=== PATIENT | female | born 1940 | race Caucasian/White ===

== ENCOUNTER → 2016-03-04 | Outpatient (CLI) | payer BC ==
[~2016-03-04] MED LIST: LEVO75TA PO; MISCCAP80 PO; VTMD1000 PO
[2016-03-04 14:40] LABS: HEMATOCRIT 38.2 % (37-47); MEAN CELL VOLUME 95.3 fL (80-100); MEAN CORPUSCULAR HEMOGLOBIN 31.4 pg (25-34); MEAN PLATELET VOLUME 9.2 fL (7.4-10.4); PLATELET COUNT 113 K/uL (130-400); RED BLOOD COUNT 4.01 M/uL (4.2-5.4); WHITE BLOOD COUNT 3.87 K/uL (4.8-10.8)
[2016-03-04 14:58] LABS: ALT/SGPT 21 U/L (12-78); AST/SGOT 18 U/L (15-37); BLOOD UREA NITROGEN 17 mg/dl (7-18); BUN/CREATININE RATIO 22.1 (10-20); CALCIUM 9.1 mg/dl (8.5-10.1); CARBON DIOXIDE 27 mmol/L (21-32); CHLORIDE 108 mmol/L (98-107); CREATININE 0.75 mg/dl (0.60-1.20); GLUCOSE 96 mg/dl (70-99); POTASSIUM 3.8 mmol/L (3.5-5.1); SODIUM 143 mmol/L (136-145)
[2016-03-04 15:10] LABS: ALKALINE PHOSPHATASE 81 U/L (45-117); IMMUNOGLOBULN M 63.2 mg/dL (40-230); RHEUMATOID FACTOR < 10.0 U/mL (0-15)
[2016-03-04 15:13] LABS: BASO ABS # 0.14 K/uL (0-0.2); BASOPHIL % 3.5 %; COMPLETE YES; EOSINOPHIL % 5.2 %; LYMPH ABS # 1.22 K/uL (1.2-3.4); LYMPHOCYTE % 31.4 %; NEUTROPHILS % 27.8 %; VARIANT LYM ABS # 0.74 K/uL; VARIANT LYMPHOCYTE % 19.1 %
[2016-03-04 15:15] LABS: INR 1.2 (0.9-1.1); PROTHROMBIN TIME (PATIENT) 13.4 SECONDS (9.0-12.0)
[2016-03-04 17:13] LABS: FIBRINOGEN* < 35 mg/dl (184-400)
[2016-03-04 17:38] LABS: MIXING STUDY INTERPRET PT PT CORRECTED; PAT:SHPL 37 PT 13.8 SECONDS; PT CALC 37 2.2; SHPL 37 PT 13.5 SECONDS
[2016-03-08 14:09] LABS: FACTOR VIII ACTIV**SEND TO GMC 142 % (55 - 145)
[2016-03-11 13:53] LABS: REFERENCE QUEST TEST REPORT
[2016-03-12 02:20] LABS: ALBUMIN 3.9 G/DL (3.8-4.8); ANTITHROMBINIII ACTIVITY** 117 % activity (80-120); B2 GLYCOPROTEIN IGA <9 SAU (<=20); B2 GLYCOPROTEIN IGG <9 SGU (<=20); B2 GLYCOPROTEIN IGM <9 SMU (<=20); COAG FACTOR 13 ACTIVITY** 174 % activity (57-192); COAG FACTOR 7 ACTIVITY* 346X 102 % (60-150); DRVVT MIX INTERPRETAION Not Indicated; GAMMA GLOBULIN 0.9 G/DL (0.8-1.7); LAC PTT SCREEN 36 sec (<=40); LIPOPROTEIN A TC 34604X 31 nmol/L (<75); LUPUS ANTICOAGULANT** TC36573X Negative (Negative); PHOSPHATIDYLSERINE IGA <20 U/mL (<20); PHOSPHATIDYLSERINE IGG <10 U/mL (<10); PHOSPHATIDYLSERINE IGM <25 U/mL (<25); PROTEIN C ACTIVITY** TC 1777X 132 % (70-180); PROTEIN S ACT(FUNCT)**1779X 92 % (60-140); TOTAL PROTEIN 6.7 G/DL (6.2-8.3)
[2016-03-16 16:38] LABS: DRVVTNEUT(REFLEX!DO NOT ORDER) Negative (Negative)
--- NOTE | 2016-04-09 08:31 | CODING QUERY NO DIAGNOSIS ---
TREATMENT RENDERED WITHOUT A DIAGNOSIS 40 To promote full compliance with coding requirements relating to patient care, physician participation is requested in all cases of home health scheduler uncertainty. Please assist us with providing a diagnosis/symptom for the test(s) below: A diagnosis/symptom was not documented on your Order. A valid diagnosis/symptom is required to bill all insurances. Please remember that we are unable to code a diagnosis of rule out, probable, possible, questionable, or suspected. DOS 03/04/16 Tests that require a diagnosis: * COMP METABOLIC DX: *MANJEET SCREEN DX: * IMMUNOGLOBULIN G,A,M DX: *FACTOR 5 LEIDEN DX: * RHEUMATOID FACTOR DX: *FACTOR 8 DX: * FIBRINOGEN DX: *COAGULATION FACTOR 7 DX: * THROMBIN TIME DX: *FACTOR 2 MUTATION DX: * CBC W/AUTO DIFF DX: *BETA-2 GLYCOPROTEIN DX: * ESR DX: *ANTITHROMBIN III DX: *COAG FACTOR 13 DX: *LUPUS ANTICOAGULANT DX: Provider Signature: Date: Thank you [facility] Information Management Once completed, please kindly fax back to [phone] For questions please call [phone]
--- NOTE | 2016-06-04 10:53 | CODING QUERY MEDICAL NECESSITY ---
SUPPORTING DIAGNOSIS NEEDED A supporting diagnosis is required for the test/procedure performed on this patient in order for us to be reimbursed by the patient's insurance. Please provide a supporting diagnosis for the following test/procedure listed below next to the test name along with your signature. *If there is no additional diagnosis for this patient that would support the following test/procedure please document that below next to the test/procedure. Test(s)/Procedure(s) that require a supporting diagnosis: * FACTOR II PROTHROMBIN MUTATION DIAGNOSIS: * FACTOR V MUTATION DIAGNOSIS: * DOS: 03/04/16 Provider Signature: Date: Thank you Corn[facility] Information Management Once completed, please kindly fax back to [phone] For questions please call [phone]
== END ==
LOC: C.LABFOXMH 12:28
PROVIDERS: ATTEND Internal Medicine Hematology & Oncology
DX: D65 Disseminated intravascular coagulation [defibrination syndrome] (principal); I82.421 Acute embolism and thrombosis of right iliac vein; Q79.6 Ehlers-Danlos syndromes; E66.9 Obesity, unspecified; D68.59 Other primary thrombophilia

== ENCOUNTER → 2016-04-19 | Outpatient (CLI) | payer BC ==
[2016-04-19 10:44] LABS: THYROID STIMULATING HORMONE 1.5 uIu/ml (0.300-4.500)
== END ==
LOC: C.LABFOXMH 09:22
PROVIDERS: ATTEND Internal Medicine
DX: E03.9 Hypothyroidism, unspecified (principal)

== ENCOUNTER → 2016-06-07 | Outpatient (CLI) | payer BC ==
[~2016-06-07] MED LIST changes: +OPTIRAY 320 IV PRN
--- NOTE | 2016-06-07 11:37 | DIAGNOSTIC IMAGING REPORT ---
CT OF THE CHEST WITH IV CONTRAST CLINICAL HISTORY: Pulmonary nodules. Coagulopathy. COMPARISON STUDY: 11/27/2015 TECHNIQUE: Following the IV administration of 80 mL of Optiray-320, CT of the thorax was performed from the thoracic inlet to the lung bases. Images are reviewed in the axial, sagittal, and coronal planes. IV contrast was administered without complication. CT DOSE: 263.00 mGy.cm FINDINGS: Thyroid: There is a stable 13 mm left lobe nodule. Thoracic aorta: The thoracic aorta is normal in course and caliber, noting standard 3-vessel arch anatomy. No aneurysm or dissection is seen. Pulmonary vasculature: The pulmonary trunk is normal in caliber. There are no central filling defects identified to suggest pulmonary embolus. Note that this examination was not protocoled for the evaluation of pulmonary emboli. HEART: The heart is normal in size and configuration, without pericardial effusion. Lungs and pleural spaces: No pleural effusions are visualized. There is a stable solid 5 mm right middle lobe pulmonary nodule. There is a stable solid 4 mm left lower lobe pulmonary nodule. Mediastinum: There is no mediastinal lymphadenopathy. Mona: Clear. Axilla: Clear. Upper abdomen: There is hepatic steatosis. Skeletal structures: There are no lytic or blastic osseous lesions. IMPRESSION: 1. 10 month stability of a solid 5 mm right middle lobe pulmonary nodule and solid 4 mm left lower lobe pulmonary nodule. 2. No evidence of pathologic adenopathy 3. Stable 13 mm left lobe thyroid nodule. Please refer to below summary of Fleischner criteria recommendations for follow-up of incidental CT nodules (Joya Doll, Guidelines for management of small pulmonary nodules detected on CT scans: A statement from the Fleischner Society, Radiology 237: 558-106 2005.) SOLID NODULES Solitary nodule size: <6 mm * low risk patients: no follow-up needed * high risk patients: optional CT at 12 months Solitary nodule size: 6-8 mm * low risk patients: follow-up at 6-12 months, then consider further follow-up at 18-24 months * high risk patients: initial follow-up CT at 6-12 months and then at 18-24 months if no change Solitary nodule size: >8 mm * either low or high risk patients - consider follow-up CT at 3 months, and/or CT-PET, and/or biopsy Multiple nodules size: <6 mm * low risk patients: no routine follow-up * high risk patients: optional CT at 12 months Multiple nodules size: 6-8 mm * low risk patients: follow-up at 3-6 months, then consider further follow-up at 18-24 months * high risk patients: follow-up at 3-6 months, then at 18-24 months if no change Multiple nodules size: >8 mm * low risk patients: follow-up at 3-6 months, then consider further follow-up at 18-24 months * high risk patients: follow-up at 3-6 months, then at 18-24 months if no change Note: newly detected indeterminate nodule in persons 35 years of age or older. * low risk patients: minimal or absent history of smoking and/or other known risk factors * high risk patients: history of smoking or of other known risk factors (e.g. first degree relative with lung cancer, or exposure to asbestos, radon, uranium) * if a nodule up to 8 mm is partly solid or is ground glass further follow-up is required after 24 months to exclude possible slow growing adenocarcinoma (MARGARITA) SUBSOLID NODULES Solitary pure ground-glass nodule * nodule size <6 mm - no CT follow-up required * nodule size >=6 mm - follow-up CT at 6-12 months, then every 2 years until 5 years Solitary part-solid nodule * nodule size <6 mm - no CT follow-up required * nodule size >=6 mm - follow-up CT at 3-6 months. If unchanged, and solid component remains <6 mm, then annual follow-up for 5 years Multiple subsolid nodules * nodule size <6 mm - follow-up CT at 3-6 months, consider further follow-up at 2 and 4 years if stable * nodule size >=6 mm - follow-up CT at 3-6 months, subsequent management based on the most suspicious nodule(s) Electronically signed by: Fausto Verduzco M.D. 06/07/2016 11:35 AM Dictated Date/Time: 06/07/2016 11:28 AM
== END | disposition home or self-care (01) ==
LOC: C.CTS 11:00
PROVIDERS: ATTEND Internal Medicine Hematology & Oncology
DX: D68.9 Coagulation defect, unspecified (principal); R91.1 Solitary pulmonary nodule; E04.1 Nontoxic single thyroid nodule

== ENCOUNTER → 2016-06-10 | Outpatient (CLI) | payer BC ==
[~2016-06-10] MED LIST changes: -OPTIRAY 320 IV PRN
--- NOTE | 2016-06-10 09:02 | DIAGNOSTIC IMAGING REPORT ---
ABDOMEN COMPLETE (US) CLINICAL HISTORY: Coagulopathy. COMPARISON STUDY: Abdominal ultrasound February 02, [address] of the abdomen August 14, 2015. FINDINGS: The liver is sonographically normal. There is no biliary ductal dilatation. There are no gallstones. No gallbladder wall thickening is present. The pancreatic body is normal. The head and tail are partially obscured. There is no hydronephrosis. The right kidney measures 9.9 cm and the left measures 10.7 cm. A 3.3 cm cyst arising from the lower pole of the right kidney is noted. Renal echogenicity, size and cortical thickness are normal. The caliber of the abdominal aorta is normal. Visualized portions of the IVC are patent. There is no ascites. IMPRESSION: 1. No significant abnormality within the abdomen. 2. No gallstones or biliary ductal dilatation. 3. 3.3 cm right renal cyst. No hydronephrosis. Electronically signed by: Cuate Thomas M.D. 06/10/2016 9:00 AM Dictated Date/Time: 06/10/2016 8:57 AM
== END | disposition home or self-care (01) ==
LOC: C.ULTR 08:25
PROVIDERS: ATTEND Internal Medicine Hematology & Oncology
DX: D68.9 Coagulation defect, unspecified (principal); N28.1 Cyst of kidney, acquired

== ENCOUNTER → 2016-07-13 | Outpatient (CLI) | payer BC ==
[2016-07-13 10:33] LABS: MEAN CELL VOLUME 98.6 fL (80-100); MEAN CORPUSCULAR HGB CONC 31.4 g/dl (32-36); RED BLOOD COUNT 3.65 M/uL (4.2-5.4)
[2016-07-13 11:10] LABS: PLATELET COUNT 86 K/uL (130-400)
[2016-07-13 11:33] LABS: COMPLETE YES; EOS % 2.5 %; IG% 0.4 %; LYMPH % 76.3 %; LYMPH ABS # 1.83 K/uL (1.2-3.4); MONO % 9.2 %; NEUT % 11.6 %
== END | disposition home or self-care (01) ==
LOC: C.LABFOXMH 09:56
PROVIDERS: ATTEND Internal Medicine Hematology & Oncology
DX: D68.9 Coagulation defect, unspecified (principal)

== ENCOUNTER → 2016-07-23 | Outpatient (CLI) | payer BC ==
--- NOTE | 2016-07-23 08:28 | DIAGNOSTIC IMAGING REPORT ---
ULTRASOUND ABDOMEN COMPLETE CLINICAL HISTORY: Right-sided abdominal pain. COMPARISON STUDY: Abdominal CT dated 08/14/2015. TECHNIQUE: Real-time, grayscale, and color flow sonography of the abdomen was performed. Images are reviewed in the transverse and longitudinal planes. FINDINGS: Liver: The liver is normal in size and echotexture measuring 12.4 cm in length. There is no intrahepatic biliary ductal dilatation. The main portal vein is patent. Gallbladder: The gallbladder is normal in appearance. No gallstones are identified. There is no gallbladder wall thickening or pericholecystic fluid. A sonographic Xiong's sign is reportedly absent. The common bile duct measures up to 0.5 cm in diameter. Pancreas: Visualized portions of the pancreatic head and body are normal in appearance. The splenic vein is patent. Spleen: The spleen is normal in size and echotexture, measuring 10.9 cm in length. Kidneys: The kidneys are images are cortical atrophy. There is no hydronephrosis. The right kidney measures 10.3 cm in length and the left kidney measures 10.7 cm in length. No shadowing calculi are identified. A 3.3 cm cyst is noted in the right lower pole. Abdominal vasculature: Visualized portions of the abdominal aorta are normal in caliber noting atherosclerotic calcification and irregularity. The IVC is normal as imaged. Ascites: None. IMPRESSION: 1. No acute sonographic abnormality is identified. No gallstones are seen. 2. The liver and spleen are normal in size. Electronically signed by: Andrea Catherine M.D. 07/23/2016 8:27 AM Dictated Date/Time: 07/23/2016 8:25 AM
== END | disposition home or self-care (01) ==
LOC: C.ULTR 07:51
PROVIDERS: ATTEND Internal Medicine Hematology & Oncology
DX: D68.9 Coagulation defect, unspecified (principal)

== ENCOUNTER → 2016-08-03 | Outpatient (CLI) | payer BC | END | disposition home or self-care (01) | LOC: C.LABFOXMH 17:04 | PROVIDERS: ATTEND Internal Medicine | DX: R35.0 Frequency of micturition (principal) ==

== ENCOUNTER → 2016-10-26 | Outpatient (CLI) | payer BC ==
[2016-10-26 09:33] LABS: HEMATOCRIT 32.3 % (37-47); MEAN CELL VOLUME 101.6 fL (80-100); MEAN CORPUSCULAR HEMOGLOBIN 31.4 pg (25-34); MEAN PLATELET VOLUME 10.1 fL (7.4-10.4); PLATELET COUNT 54 K/uL (130-400); RED BLOOD COUNT 3.18 M/uL (4.2-5.4); WHITE BLOOD COUNT 2.41 K/uL (4.8-10.8)
[2016-10-26 09:35] LABS: BASO % 0.4 %; BASO ABS # 0.01 K/uL (0-0.2); COMPLETE YES; EOS % 2.1 %; IG% 2.9 %; LYMPH % 68.5 %; LYMPH ABS # 1.65 K/uL (1.2-3.4); NEUT % 21.1 %
[2016-10-26 09:36] LABS: PLT ESTIMATE DECREASED; VACUOLIZATION 1+
--- NOTE | 2016-12-10 11:01 | CODING QUERY NO DIAGNOSIS ---
TREATMENT RENDERED WITHOUT A DIAGNOSIS DATE OF SERVICE: 11/25/16 To promote full compliance with coding requirements relating to patient care, physician participation is requested in all cases of gm uncertainty. Please assist us with providing a diagnosis/symptom for the test(s) below: A diagnosis/symptom was not documented on your Order. A valid diagnosis/symptom is required to bill all insurances. Please remember that we are unable to code a diagnosis of rule out, probable, possible, questionable, or suspected. Tests that require a diagnosis: * CBC W/ AUTO DIFF DIAGNOSIS: Provider Signature: Date: Thank you Tamie Tejada Health Information Management Once completed, please kindly fax back to [phone] For questions please call [phone]
== END | disposition home or self-care (01) ==
LOC: C.LABFOXMH 08:29
PROVIDERS: ATTEND Internal Medicine Hematology & Oncology
DX: Z01.89 Encounter for other specified special examinations (principal)

== ENCOUNTER → 2016-11-05 | Outpatient (CLI) | payer BC ==
--- NOTE | 2016-11-05 15:47 | MAMMOGRAPHY REPORT ---
BILATERAL DIGITAL SCREENING MAMMOGRAM WITH CAD: 11/05/2016 CLINICAL HISTORY: Routine screening. TECHNIQUE: Current study was also evaluated with a Computer Aided Detection (CAD) system. Bilateral CC and MLO and XCCL views were obtained. COMPARISON: Comparison is made to exams dated: 11/05/2015 mammogram, 08/07/2014 mammogram, 08/02/2013 m ammogram, 07/27/2012 mammogram, 07/27/2011 mammogram, and 07/24/2010 mammogram - [facility]. BREAST COMPOSITION: There are scattered areas of fibroglandular density in both breasts. FINDINGS: No suspicious masses, calcifications, or areas of architectural distortion are noted in ei ther breast. There has been no significant interval change compared to prior exams. Scattered bilate ral benign-appearing calcifications are not significantly changed. IMPRESSION: ACR BI-RADS CATEGORY 2: BENIGN There is no mammographic evidence of malignancy. A 1 year screening mammogram is recommended. The pa tient will receive written notification of the results. Approximately 10% of breast cancers are not detected with mammography. A negative mammographic report should not delay biopsy if a clinically suggestive mass is present. Hortensia Vale M.D. ah/:11/05/2016 12:45:41 Wet Cleaner Machine: Tian CRUZ(R)(M), [facility] letter sent: Normal 1/2 BI-RADS Code: ACR BI-RADS Category 2: Benign
== END | disposition home or self-care (01) ==
LOC: C.MAMM 09:19
PROVIDERS: ATTEND Obstetrics & Gynecology
DX: Z12.31 Encounter for screening mammogram for malignant neoplasm of breast (principal)

== ENCOUNTER 2016-11-15 19:37 | Inpatient (IN) | payer BC, OTHER ==
[~2016-11-15] VITALS: Ht 157.5 cm; Wt 81.5 kg
[2016-11-15] MEDS ORDERED: MAGNESIUM SULFATE 1GM / D5W 1 GM BAG IV STA (19:40)
[2016-11-15] MEDS ORDERED: METOCLOPRAMIDE HCL INJ 5 MG/ML 2 ML VIAL IV STA (19:41)
[2016-11-15] MEDS ORDERED: SODIUM CHLORIDE 0.9% 1000ML 1,000 ML IV STA (19:41)
[2016-11-15] MEDS ORDERED: ATROPINE SULFATE 0.1 MG/ML 5ML SYR IV STA (19:49)
--- NOTE | 2016-11-15 19:50 | EMERGENCY ROOM VISIT NOTE ---
History Report prepared by Mazin: Blayne Deleon Under the Supervision of: Dr. Billy Moeller M.D. First contact with patient: 19:38 Stated Complaint: SYNCOPE History of Present Illness The patient is a 76 year old female who presents to the Emergency Room with complaints of 4 syncopal episodes since this afternoon. Today, the patient began chemotherapy injections for her myelodysplastic syndrome. She also has a history of thyroid dysfunction and a dilated aortic root. After the injection, she was doing well and went home. She began to be nauseated so she took a Compazine. She then started to hear a buzzing noise and vomited. She passed out soon after. She hit her head during this episode when she fell. She then had 3 more syncopal episodes with vomiting as well. She states that she has a history of passing out with vomiting, but has never been treated for it. Source of History: patient Onset: this afternoon Position: other (Syncope) Symptom Intensity: 4 episodes Quality: other (Syncope) Timing: intermittent Associated Symptoms: + nausea, + vomiting Note: She hit her head when she fell. She denies any other complaints. Review of Systems See HPI for pertinent positives & negatives. A total of 10 systems reviewed and were otherwise negative. Past Medical & Surgical Medical Problems: (1) Bradycardia with less than 30 beats per minute (2) Obesity, Nos (3) Vitamin Deficiency, Unspecified Family History No pertinent family history Social History Smoking Status: Never Smoker Smokeless Tobacco Use: No Drug Use: none Marital Status: Housing Status: lives with family Occupation Status: retired Current/Historical Medications Scheduled Cholecalciferol (Vitamin D3), 1,000 INTER.UNIT PO DAILY Levothyroxine Sodium (Synthroid), 75 MCG PO DAILY Probiotic Product (Probiotic), 1 CAP PO DAILY Allergies Coded Allergies: Shellfish (Verified Allergy, Unknown, ., 11/15/16) Sodium Hyaluronate (Verified Allergy, Unknown, ., 11/15/16) Physical Exam Vital Signs Date Time Temp Pulse Resp B/P (MAP) Pulse Ox O2 Delivery O2 Flow Rate FiO2 11/15/16 21:15 87 23 113/54 100 Nasal Cannula 2.0 11/15/16 21:01 83 12 114/67 100 Nasal Cannula 2.0 11/15/16 20:46 84 17 130/72 100 Nasal Cannula 2.0 11/15/16 20:30 82 18 124/80 100 Nasal Cannula 2.0 11/15/16 20:25 99 Nasal Cannula 2.0 11/15/16 20:24 88 Room Air 11/15/16 20:16 89 15 131/56 100 Room Air 11/15/16 19:49 52 11/15/16 19:48 0 11/15/16 19:46 100 Room Air 11/15/16 19:45 79 13 133/73 100 Room Air 11/15/16 19:44 71 Physical Exam GENERAL: Patient is a female who is pale in appearance and actively vomiting. HEAD: Normocephalic atraumatic EYES: Ocular movements intact pupils equal and react to light OROPHARYNX mucous membranes are moist no exudates present no erythema or edema present NECK: Supple no nuchal rigidity CHEST: Good equal expansion LUNGS: Clear and equal to auscultation CARDIAC: Normal S1 and S2 ABDOMEN: Soft nontender no guarding BACK: No CVA tenderness EXTREMITIES: No pain upon palpation normal muscle strength in all groups no clubbing cyanosis or edema NEURO: Patient is following commands and answering questions appropriately. Alert and oriented x3 Cranial Nerves 2-12 grossly intact Medical Decision & Procedures ER Provider Diagnostic Interpretation: Radiology results as stated below per my review and radiologist interpretation: CHEST ONE VIEW PORTABLE CLINICAL HISTORY: Chest pain. COMPARISON STUDY: Chest CT June 07, 2016. FINDINGS: Lung volumes are normal. No pneumothorax or pleural effusion is present. There is no evidence of pulmonary edema. There is no consolidation to suggest pneumonia. Cardiomediastinal silhouette is stable. IMPRESSION: No acute cardiopulmonary findings. Electronically signed by: Cuate Thomas M.D. 11/15/2016 8:19 PM Dictated Date/Time: 11/15/2016 8:18 PM Laboratory Results Test 11/15/16 19:45 11/15/16 19:59 Hyposegmented Neutrophils 1+ Platelet Estimate DECREASED Anisocytosis PRESENT Estimated Average Glucose 111 mg/dl Hemoglobin A1c 5.5 % (4.5-5.6) Total Bilirubin 0.9 mg/dl (0.2-1) Direct Bilirubin 0.3 mg/dl (0-0.2) Aspartate Amino Transf (AST/SGOT) 27 U/L (15-37) Alanine Aminotransferase (ALT/SGPT) 20 U/L (12-78) Alkaline Phosphatase 70 U/L (45-117) Total Protein 7.6 gm/dl (6.4-8.2) Albumin 4.0 gm/dl (3.4-5.0) Lipase 125 U/L (73-393) Thyroid Stimulating Hormone (TSH) 1.240 uIu/ml (0.300-4.500) Free Thyroxine 1.38 ng/dl (0.80-1.60) Total Triiodothyronine 1.07 ng/ml (0.60-1.81) Bedside Hemoglobin 11.9 g/dl (12.0-16.0) Bedside Hematocrit 35 % (37-47) Bedside Sodium 139 mEq/L (135-144) Bedside Potassium 3.5 mEq/L (3.3-5.0) Bedside Chloride 103 mEq/L (101-112) Bedside Total CO2 23 mEq/l (24-31) Bedside Blood Urea Nitrogen 15 mg/dl (7-18) Bedside Creatinine 0.7 mg/dl (0.6-1.3) Bedside Glucose (other) 180 mg/dl (70-99) Bedside Ionized Calcium ([place]) 1.15 mmol/l (1.12-1.32) Labs reviewed by ED physician. Medications Administered Medications (Trade) Dose Ordered Sig/Jose Route Start Time Stop Time Status Last Admin Dose Admin Magnesium Sulfate (Magnesium Sulfate) 2 gm NOW STAT IV 11/15/16 19:40 11/15/16 19:42 DC 11/15/16 19:40 2 GM Metoclopramide HCl (Reglan Inj) 10 mg NOW STAT IV 11/15/16 19:41 11/15/16 19:42 DC 11/15/16 19:41 10 MG Sodium Chloride 1,000 ml @ 999 mls/hr Q1H1M STAT IV 11/15/16 19:41 11/15/16 20:41 DC 11/15/16 19:41 999 MLS/HR Atropine Sulfate (Atropine Sulfate 0.1MG/Ml Inj) 1 mg NOW STAT IV 11/15/16 19:49 11/15/16 19:50 DC 11/15/16 19:47 0.5 MG Potassium Chloride 10 meq/ Prmx 100 ml @ 100 mls/hr NOW STAT IV 11/15/16 20:00 11/15/16 20:59 DC 11/15/16 20:08 100 MLS/HR Ondansetron HCl (Zofran Inj) 4 mg STK-MED ONCE .ROUTE 11/15/16 21:06 11/15/16 21:07 DC 11/15/16 21:12 4 MG Potassium Chloride/Sodium Chloride 1,000 ml @ 125 mls/hr Q8H IV 11/15/16 21:20 11/16/16 19:04 DC 11/16/16 06:01 125 MLS/HR ECG Indication: syncope Rate (beats per minute): 80 Rhythm: normal sinus Findings: no acute ischemic change, no ectopy ED Course 1937: Past medical records reviewed. The patient was evaluated in room A1. A complete history and physical examination was performed. 1939: Ordered Magnesium Sulfate 2 gm IV 1940: Ordered Sodium Chloride 1000 ml @ 999 mls/hr IV, Reglan Inj 10 mg IV 1944: I spoke with Dr. Pepper of Cardiology at this time. He recommended starting the patient on Atropine and to pace the patient. 1948: Ordered Atropine Sulfate 1 mg IV 1999: Ordered Potassium Chloride 10 meq/ Prmx 100 ml @ 100 mls/hr IV, Potassium Chloride 10 meq IV 2046: Ordered Promethazine HCl 25 mg/Sodium Chloride 51 ml @ 204 mls/hr IV 2057: Upon reexamination the patient is resting. I discussed results and treatment plan with the patient. She verbalizes agreement and understanding. I spoke with Dr. Domínguez from the [place] [facility]. The patient will be evaluated for further management. Medical Decision Differential diagnosis: Etiologies such as cardiac ischemia, aortic dissection, pulmonary embolism, pneumonia, pneumothorax, musculoskeletal, infections, pericarditis, myocarditis , esophageal rupture, gastrointestinal, as well as others were entertained. This is a 76-year-old female that presents emergency Department with long sinus pauses. Patient started chemotherapy today and when she begins vomiting only her atrium or bleeding. Based on this the patient was given atropine which seemed to stop any further episodes. The patient's emesis was also treated with Reglan in the emergency department. Repeat examination revealed much improvement the patient's symptoms. I did discuss the case with both cardiology as well as the hospitalist. The patient was placed with the pacer pads on. Medication Reconcilliation Current Medication List: was personally reviewed by me Blood Pressure Screening Patient's blood pressure: Normal blood pressure Blood pressure disposition: Did not require urgent referral Consults Time Called: 1939 Consulting Physician: Dr. Pepper - Cardiology Returned Call: 1944 We discussed the patient's case. Please see the ED course. Additional Consults: Time Called: 2054 Consulted Physician: Dr. Domínguez - [facility] [place] Returned Call: 2057 Additional Comments: I discussed the patient's case with Dr. Domínguez, he has agreed to evaluate the patient for further management and care. Impression Primary Impression: Sinus arrhythmia Additional Impression: Vomiting Critical Care I have personally spent greater than 30 minutes of critical care time in the direct management of this patient. This includes bedside care, interpretation of diagnostic studies, and testing, discussion with consultants, patient, and family members, and other required patient management activities. This 30 minutes is in excess of all separately billable procedures. Scribe Attestation The scribe's documentation has been prepared under my direction and personally reviewed by me in its entirety. I confirm that the note above accurately reflects all work, treatment, procedures, and medical decision making performed by me.The scribe's documentation has been prepared under my direction and personally reviewed by me in its entirety. I confirm that the note above accurately reflects all work, treatment, procedures, and medical decision making performed by me. Departure Information Dispostion Being Evaluated By Hospitalist Referrals Benja Henriquez M.D. (PCP) Problem Qualifiers Additional Impression: Vomiting Vomiting type: unspecified Vomiting Intractability: unspecified Nausea presence: unspecified Qualified Codes: R11.10 - Vomiting, unspecified
[2016-11-15] MEDS ORDERED: POTASSIUM CHLR 10 MEQ / WTR 10 MEQ in PREMIXED WATER 100 ML IV STA (20:00)
[2016-11-15] MEDS ORDERED: POTASSIUM CHLORIDE 10 MEQ / 100ML WTR IV ONE (20:03)
[2016-11-15] MEDS: POTASSIUM CHLORIDE 10 MEQ / 100ML WTR IV STA ×2 (20:08→21:20)
[2016-11-15 20:11] LABS: HEMATOCRIT 33.4 % (37-47); MEAN CELL VOLUME 97.9 fL (80-100); MEAN CORPUSCULAR HEMOGLOBIN 31.7 pg (25-34); MEAN CORPUSCULAR HGB CONC 32.3 g/dl (32-36); RED BLOOD COUNT 3.41 M/uL (4.2-5.4); WHITE BLOOD COUNT 5.47 K/uL (4.8-10.8)
[2016-11-15 20:11] LABS: ISTAT CREATININE 0.7 mg/dl (0.6-1.3); ISTAT HEMOGLOBIN 11.9 g/dl (12.0-16.0); ISTAT IONIZED CALCIUM 1.15 mmol/l (1.12-1.32)
--- NOTE | 2016-11-15 20:20 | DIAGNOSTIC IMAGING REPORT ---
CHEST ONE VIEW PORTABLE CLINICAL HISTORY: Chest pain. COMPARISON STUDY: Chest CT June 07, 2016. FINDINGS: Lung volumes are normal. No pneumothorax or pleural effusion is present. There is no evidence of pulmonary edema. There is no consolidation to suggest pneumonia. Cardiomediastinal silhouette is stable. IMPRESSION: No acute cardiopulmonary findings. Electronically signed by: Cuate Thomas M.D. 11/15/2016 8:19 PM Dictated Date/Time: 11/15/2016 8:18 PM
[2016-11-15 20:23] LABS: INR 1.2 (0.9-1.1); PROTHROMBIN TIME (PATIENT) 13.4 SECONDS (9.0-12.0)
[2016-11-15 20:37] LABS: ALT/SGPT 20 U/L (12-78); BLOOD UREA NITROGEN 15 mg/dl (7-18); BUN/CREATININE RATIO 20.4 (10-20); CALCIUM 9.7 mg/dl (8.5-10.1); CARBON DIOXIDE 22 mmol/L (21-32); CHLORIDE 106 mmol/L (98-107); CREATININE 0.74 mg/dl (0.60-1.20); GLUCOSE 180 mg/dl (70-99); POTASSIUM 3.4 mmol/L (3.5-5.1); SODIUM 140 mmol/L (136-145)
[2016-11-15 20:40] LABS: ANISOCYTOSIS PRESENT; BASO % 0.2 %; BASO ABS # 0.01 K/uL (0-0.2); COMPLETE YES; EOS % 0.5 %; HYPOSEGMENTED POLYS 1+; LYMPH % 21.2 %; LYMPH ABS # 1.16 K/uL (1.2-3.4); MEAN PLATELET VOLUME 9.6 fL (7.4-10.4); MONO % 0.7 %; NEUT % 75.4 %; PLATELET COUNT 41 K/uL (130-400); PLT ESTIMATE DECREASED; VACUOLIZATION 1+
[2016-11-15 20:45] LABS: ALKALINE PHOSPHATASE 70 U/L (45-117); AST/SGOT 27 U/L (15-37); CKMB/CK RATIO 1.8 (0-3.0)
[2016-11-15] MEDS ORDERED: PROMETHAZINE HCL INJ 25 MG in SODIUM CHLORIDE 0.9% 50ML 50 ML IV STA (20:47)
[2016-11-15] MEDS ORDERED: ONDANSETRON INJ 2 MG/ML 2 ML VIAL ONE (21:06)
[2016-11-15] MEDS: NSS + 20MEQ KCL 1000ML 1,000 ML IV SCH (21:20)
[2016-11-15] MEDS ORDERED: ACETAMINOPHEN 325 MG TAB PO PRN (21:30)
[2016-11-15] MEDS ORDERED: ONDANSETRON INJ 2 MG/ML 2 ML VIAL IV PRN (21:30)
--- NOTE | 2016-11-15 21:49 | History and Physical ---
History & Physical Date & Time of Service: Nov 15, 2016 at 21:49 Chief Complaint: Syncope Primary Care Physician: Benja Henriquez M.D. History of Present Illness Source: patient The patient is a 76-year-old female who presents to the emergency department with 4 syncopal episodes since the afternoon prior to arrival. Today was the first day for chemotherapy for her myelodysplastic syndrome, of which she received [address] Brewer. Immediately after the injections, she was doing well, reports having gone out to a store, and when she got home she felt nauseous and took a Compazine pill. She reports then hearing a buzzing noise, vomited, and passed out soon thereafter. She reports that she did hit her head during the first episode, and the following 3 episodes also occurred after vomiting. She reports that she does have a previous history of passing out with vomiting, but has never been treated for it. Family History No pertinent family history Noncontributory Social History Smoking Status: Never Smoker Smokeless Tobacco Use: No Drug Use: none Marital Status: Occupational Status: retired Immunizations History of Influenza Vaccine: Unknown History of Tetanus Vaccine?: Unknown History of Pneumococcal: Unknown History of Hepatitis B Vaccine: Unknown Multi-Drug Resistant Organisms History of MDRO: No Allergies Coded Allergies: Shellfish (Verified Allergy, Unknown, ., 11/15/16) Sodium Hyaluronate (Verified Allergy, Unknown, ., 11/15/16) Home Medications Scheduled Cholecalciferol (Vitamin D3), 1,000 INTER.UNIT PO DAILY Levothyroxine Sodium (Synthroid), 75 MCG PO DAILY Probiotic Product (Probiotic), 1 CAP PO DAILY Review of Systems The patient denies chest pain, palpitations, shortness of breath, cough, lower extremity swelling, vision change, hearing change, sore throat, fevers, chills, sweats, weight change, fatigue, diarrhea or constipation, abdominal pain, pelvic pain, blood in urine or stool, dysuria, urinary frequency or urgency, lightheadedness , dizziness, headache, rash, abnormal bruising or bleeding, imbalance, focal or generalized weakness, numbness or tingling in arms or legs, generalized arthralgias or myalgias, back or neck pain, or night sweats. The review of systems is otherwise negative other than for that already noted above, and at least 10 systems have been reviewed. Physical Exam Vital Signs Date Time Temp Pulse Resp B/P (MAP) Pulse Ox O2 Delivery O2 Flow Rate FiO2 11/15/16 21:30 82 18 111/79 100 Nasal Cannula 2.0 11/15/16 21:15 87 23 113/54 100 Nasal Cannula 2.0 11/15/16 21:01 83 12 114/67 100 Nasal Cannula 2.0 11/15/16 20:46 84 17 130/72 100 Nasal Cannula 2.0 11/15/16 20:30 82 18 124/80 100 Nasal Cannula 2.0 11/15/16 20:25 99 Nasal Cannula 2.0 11/15/16 20:24 88 Room Air 11/15/16 20:16 89 15 131/56 100 Room Air 11/15/16 19:49 52 11/15/16 19:48 0 11/15/16 19:46 100 Room Air 11/15/16 19:45 79 13 133/73 100 Room Air 11/15/16 19:44 71 The patient is awake, well-developed and adequately nourished, alert and oriented 3, normocephalic and atraumatic, lying in bed and in no acute distress. HEENT--PERRL, EOMI, mucous membranes and oropharynx dry. Neck--supple, no JVD or bruits, thyroid normal, trachea midline, no adenopathy. Heart--normal S1 and S2, no extra beats, no murmurs, rubs or gallops. Lungs--clear bilaterally with good air movement, no respiratory distress, no accessory muscle use. Abdomen--normal bowel sounds and soft, nontender and nondistended, no hernias or masses, no organomegaly. Extremities--no cyanosis, clubbing or edema. There are good distal pulses b/l. Dermatologic--normal skin turgor, normal color, warm and dry, no abnormal lymph nodes, no rash. Neurologic--cranial nerves II through XII grossly intact, motor and sensory examination normal. Rheumatologic--normal range of motion, nontender, muscles and joints. Psychiatric--normal affect. Diagnostics Laboratory Results Results Past 24 Hours Test 11/15/16 19:45 11/15/16 19:59 Range/Units White Blood Count 5.47 4.8-10.8 K/uL Red Blood Count 3.41 4.2-5.4 M/uL Hemoglobin 10.8 12.0-16.0 g/dL Hematocrit 33.4 37-47 % Mean Corpuscular Volume 97.9 80-100 fL Mean Corpuscular Hemoglobin 31.7 25-34 pg Mean Corpuscular Hemoglobin Concent 32.3 32-36 g/dl Platelet Count 41 130-400 K/uL Mean Platelet Volume 9.6 7.4-10.4 fL Neutrophils (%) (Auto) 75.4 % Lymphocytes (%) (Auto) 21.2 % Monocytes (%) (Auto) 0.7 % Eosinophils (%) (Auto) 0.5 % Basophils (%) (Auto) 0.2 % Neutrophils # (Auto) 4.12 1.4-6.5 K/uL Lymphocytes # (Auto) 1.16 1.2-3.4 K/uL Monocytes # (Auto) 0.04 0.11-0.59 K/uL Eosinophils # (Auto) 0.03 0-0.5 K/uL Basophils # (Auto) 0.01 0-0.2 K/uL RDW Standard Deviation 63.1 36.4-46.3 fL RDW Coefficient of Variation 17.7 11.5-14.5 % Immature Granulocyte % (Auto) 2.0 % Immature Granulocyte # (Auto) 0.11 0.00-0.02 K/uL Nucleated RBC Absolute Count (auto) 0.09 0-0 K/uL Nucleated Red Blood Cells % 1.6 % Hyposegmented Neutrophils 1+ Hypogranular Neutrophils 1+ Toxic Vacuolation 1+ Platelet Estimate DECREASED Basophilic Stippling 1+ Anisocytosis PRESENT Prothrombin Time 13.4 9.0-12.0 SECONDS Prothromb Time International Ratio 1.2 0.9-1.1 Sodium Level 140 136-145 mmol/L Potassium Level 3.4 3.5-5.1 mmol/L Chloride Level 106 98-107 mmol/L Carbon Dioxide Level 22 21-32 mmol/L Anion Gap 12.0 18.0 16-25 mmol/L Blood Urea Nitrogen 15 7-18 mg/dl Creatinine 0.74 0.60-1.20 mg/dl Est Creatinine Clear Calc Drug Dose 67.9 ml/min Estimated GFR () 91.2 Estimated GFR (Non- 78.7 BUN/Creatinine Ratio 20.4 10-20 Random Glucose 180 70-99 mg/dl Calcium Level 9.7 8.5-10.1 mg/dl Magnesium Level 2.2 1.8-2.4 mg/dl Total Bilirubin 0.9 0.2-1 mg/dl Direct Bilirubin 0.3 0-0.2 mg/dl Aspartate Amino Transf (AST/SGOT) 27 15-37 U/L Alanine Aminotransferase (ALT/SGPT) 20 12-78 U/L Alkaline Phosphatase 70 45-117 U/L Total Creatine Kinase 105 26-192 U/L Creatine Kinase MB 1.9 0.5-3.6 ng/ml Creatine Kinase MB Ratio 1.8 0-3.0 Troponin I < 0.015 0-0.045 ng/ml Total Protein 7.6 6.4-8.2 gm/dl Albumin 4.0 3.4-5.0 gm/dl Lipase 125 73-393 U/L Thyroid Stimulating Hormone (TSH) 1.240 0.300-4.500 uIu/ml Free Thyroxine 1.38 0.80-1.60 ng/dl Total Triiodothyronine 1.07 0.60-1.81 ng/ml Bedside Hemoglobin 11.9 12.0-16.0 g/dl Bedside Hematocrit 35 37-47 % Bedside Sodium 139 135-144 mEq/L Bedside Potassium 3.5 3.3-5.0 mEq/L Bedside Chloride 103 101-112 mEq/L Bedside Total CO2 23 24-31 mEq/l Bedside Blood Urea Nitrogen 15 7-18 mg/dl Bedside Creatinine 0.7 0.6-1.3 mg/dl Bedside Glucose (other) 180 70-99 mg/dl Bedside Ionized Calcium (Marianna) 1.15 1.12-1.32 mmol/l Diagnostic Radiology Patient Name: ISHAAN OBRIEN Unit Number: [id number] Dictated: 11/15/162017 Transcribed: 11/15/162017 RENEE Printed Date/Time: [~ rep prt dt]/[~ rep prt tm] [~ rep ct labl] - [~ rep ct ivnm] [facility] [place] [address] Dictated: 11/15/162017 Transcribed: 11/15/162017 RENEE Printed Date/Time: [~ rep prt dt]/[~ rep prt tm] [~ rep ct labl] - [~ rep ct ivnm] [~ rep ct add3]] CHEST ONE VIEW PORTABLE CLINICAL HISTORY: Chest pain. COMPARISON STUDY: Chest CT June 07, 2016. FINDINGS: Lung volumes are normal. No pneumothorax or pleural effusion is present. There is no evidence of pulmonary edema. There is no consolidation to suggest pneumonia. Cardiomediastinal silhouette is stable. IMPRESSION: No acute cardiopulmonary findings. Electronically signed by: Cuate Thomas M.D. 11/15/2016 8:19 PM Dictated Date/Time: 11/15/2016 8:18 PM The status of this report is Signed. Draft = Not yet reviewed or approved by Radiologist. Signed = Reviewed and approved by Radiologist. <AttendingPhy></AttendingPhy> <FamilyPhy>Benja Henriquez M.D.</FamilyPhy> < PrimaryPhy>Benja Henriquez M.D.</PrimaryPhy> <UnitNumber>[id number]</UnitNumber > <VisitNumber>[id number]</VisitNumber> <PatientName>ISHAAN OBRIEN</ PatientName> <DateOfBirth>1940</DateOfBirth> <Location>[facility]</Location> < ServiceDate>11/15/16</ServiceDate> <MNE>ESINDI</MNE> <OrderingPhy>Billy Moeller MD</OrderingPhy> <OrderingPhyMNE>f rep ord dr briseno</OrderingPhyMNE> < DictatingPhyMNE>f rep dict dr briseno</DictatingPhyMNE> <CCListMNE>f rep ct mne</ CCListMNE> <AdmittingPhyMNE>f pt admit dr briseno</AdmittingPhyMNE> <AttendingPhyMNE >f pt attend dr briseno</AttendingPhyMNE> <ConsultingPhyMNE>f pt consult dr briseno</ConsultingPhyMNE> <FamilyPhyMNE>f pt fam dr briseno</FamilyPhyMNE> <OtherPhyMNE>f pt other dr briseno</OtherPhyMNE> < PrimaryPhyMNE>f pt prim care dr briseno</PrimaryPhyMNE> <ReferringPhyMNE>f pt referring dr briseno</ReferringPhyMNE> EKG EKG shows normal sinus rhythm at 66 bpm, question old septal infarct, otherwise no acute ST-T changes. Telemetry strip in the ED shows a 15 second episode of complete heart block. Impression Assessment and Plan Syncope and collapse/complete heart block resolved with atropine-- The patient will be admitted to telemetry for serial cardiac enzymes, cardiac rhythm monitoring and a 2-D echocardiogram with Dopplers. Atropine 0.5 mg IV at bedside. Pacer pads placed on in the ED and is set to pace if heart rate drops to less than 60 bpm. Continue to replete potassium, with current level 3.4, to target of 4.0. 2 K- riders to be given in the ED. ADD a magnesium level to current ED labs. Normal saline with KCl 20 mEq at 125 ML's per hour. Repeat laboratories in the a.m. Follow serial troponins. Dr. Pepper from cardiology is aware of the patient. Order a CT of the head without contrast due to head injury during first fall. Hypothyroidism--continue levothyroxine sodium at 75 g by mouth daily. Level of Care Telemetry Advanced Directives Existing Advance Directive: No Existing Living Will: No Existing Power of Coverage Analyst: No Resuscitation Status FULL RESUSCITATION VTE Prophylaxis VTE Risk Assessment Done? Y/N: Yes Risk Level: Moderate Given or contraindicated: SCD's Social Service Consult None Apply
[2016-11-15 23:18] VITALS: BP 120/64; PULSE 79; TEMP 36.6; O2SAT 96; Ht 157.5 cm; Wt 81.5 kg
[2016-11-16] VITALS (16 sets, daily range): BP systolic 99–134; BP diastolic 45–74; PULSE 68–93; TEMP 36.7–37.2; O2SAT 92–99
[2016-11-16] MEDS: LEVOTHYROXINE 75 MCG TAB PO SCH (06:00)
[2016-11-16] MEDS: NSS + 20MEQ KCL 1000ML 1,000 ML IV SCH (06:01)
[2016-11-16 06:52] LABS: HEMATOCRIT 26.4 % (37-47); MEAN CELL VOLUME 100.8 fL (80-100); MEAN CORPUSCULAR HEMOGLOBIN 31.7 pg (25-34); MEAN CORPUSCULAR HGB CONC 31.4 g/dl (32-36); RED BLOOD COUNT 2.62 M/uL (4.2-5.4); WHITE BLOOD COUNT 2.84 K/uL (4.8-10.8)
--- NOTE | 2016-11-16 06:53 | DIAGNOSTIC IMAGING REPORT ---
HEAD WITHOUT CONTRAST (CT) CLINICAL HISTORY: 76 years-old Female with s/p fall with head injury. Acute head injury status post fall TECHNIQUE: Multiple axial CT images of the head were obtained without contrast. A dose lowering technique was utilized adhering to the principles of ALARA. CT DOSE: 614.27 mGy.cm COMPARISON: None. FINDINGS: No acute intracranial hemorrhage, midline shift, mass, large territorial ischemia or abnormal extra-axial collection. There is mild atrophy with background mild to moderate chronic microvascular ischemic changes. Atherosclerotic plaquing is noted involving the cerebral vasculature at the level of the skull base. The calvarium is intact. The paranasal sinuses, mastoid air cells, and middle ear cavities are clear. IMPRESSION: 1. No acute intracranial abnormality. 2. Atrophy with chronic microvascular ischemic changes. The above report was generated using voice recognition software. It may contain grammatical, syntax or spelling errors. Electronically signed by: John Blakely M.D. 11/16/2016 6:52 AM Dictated Date/Time: 11/16/2016 6:50 AM
[2016-11-16 06:55] LABS: MEAN PLATELET VOLUME 10.8 fL (7.4-10.4); PLATELET COUNT 38 K/uL (130-400)
[2016-11-16 06:59] LABS: INR 1.4 (0.9-1.1); PROTHROMBIN TIME (PATIENT) 14.7 SECONDS (9.0-12.0)
[2016-11-16 07:27] LABS: COMPLETE YES; EOS % 1.1 %; IG% 1.8 %; LYMPH ABS # 1.25 K/uL (1.2-3.4); NEUT % 46.1 %; POLYCHROMASIA 1+; VACUOLIZATION 3+
[2016-11-16 07:28] LABS: BUN/CREATININE RATIO 16.5 (10-20); CALCIUM 8.1 mg/dl (8.5-10.1); CREATININE 0.57 mg/dl (0.60-1.20); MAGNESIUM 2.5 mg/dl (1.8-2.4); POTASSIUM 3.9 mmol/L (3.5-5.1)
[2016-11-16 07:30] LABS: CKMB/CK RATIO 2.9 (0-3.0)
[2016-11-16] MEDS: LACTOBACILLUS ACIDOPHILUS (FLORANEX) TAB PO SCH (09:00)
[2016-11-16] MEDS: CHOLECALCIFEROL 1000 INTER.UNIT TAB PO SCH (09:00)
--- NOTE | 2016-11-16 09:07 | Cardiology Consultation ---
Cardiology Consultation Date of Consultation: Nov 16, 2016. Requesting Physician: Dr. 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 She had nausea and vomiting associated with her chemotherapy and had multiple episodes of syncope yesterday, several documented with long pauses associated with complete heart block while she was nauseous and vomiting. This is consistent with her prior history. Interestingly one of her daughters has swallow syncope associated with heart block and her mother had some type of heart block which is unclear but may be similar, so there may be some sort of genetic component. Her one daughter is a infectious disease specialist and I talked to her on the phone to obtain some of this history as well as interviewing the patient in the room. As noted her lightheadedness and syncope is long-standing associate with nausea and vomiting, however in the past it has been sporadic and not intrusive. Now with the chemotherapy and requiring further treatments it will be difficult to avoid. Following the episodes in the ambulance and in the emergency room (which were documented) she has had no further lightheadedness or dizziness but also no further nausea or vomiting. She has no known heart disease and a recent echocardiogram was normal. Her chronic DIC is associated with a low fibrinogen and platelet count, that is also being followed by hematology. Past Medical/Surgical History Myelodysplastic syndrome Chronic DIC Long-standing syncope associated with nausea and vomiting Hypothyroidism Family History No pertinent family history An unusual family history of heart block associated with vagal events Social History Smoking Status: Never Smoker History of Alcohol Use: Yes (3 glasses of wine per week) Review of Systems Constitutional: No fever, No weight loss, No weakness Respiratory: No cough, No wheezing, No shortness of breath, No dyspnea on exertion Cardiac: + see HPI, + problem reported (syncope associated with nausea and vomiting), No chest pain, No orthopnea, No PND, No edema, No palpitations Abdomen: No pain, No nausea, No vomiting, No diarrhea, No GI bleeding Female : No problem reported Neurologic: No paralysis, No weakness, No numbness/tingling, No balance problems Heme: No abnormal bleeding/bruising, No clotting problems Endo: No fatigue Skin: No problem reported All Other Systems: Reviewed and Negative Allergies Coded Allergies: Shellfish (Verified Allergy, Unknown, ., 11/15/16) Sodium Hyaluronate (Verified Allergy, Unknown, ., 11/15/16) Medications Current Inpatient Medications Medications (Trade) Dose Ordered Sig/Jose Route Start Time Stop Time Status Last Admin Dose Admin Potassium Chloride/Sodium Chloride 1,000 ml @ 125 mls/hr Q8H IV 11/15/16 21:20 12/15/16 21:19 11/16/16 06:01 125 MLS/HR Acetaminophen (Tylenol Tab) 650 mg Q4H PRN PO 11/15/16 21:30 12/15/16 21:29 Cholecalciferol (Vitamin D Tab) 1,000 inter.unit DAILY PO 11/16/16 09:00 12/16/16 08:59 Levothyroxine Sodium (Synthroid Tab) 75 mcg DAILYBB PO 11/16/16 06:00 12/16/16 06:59 11/16/16 06:00 75 MCG Lactobacillus Acidophilus (Floranex Tab) 1 tab DAILY PO 11/16/16 09:00 12/16/16 08:59 Ondansetron HCl (Zofran Inj) 4 mg Q6H PRN IV 11/15/16 21:30 12/15/16 21:29 Physical Exam Vital Signs Past 12 Hours Date Time Temp Pulse Resp B/P (MAP) Pulse Ox O2 Delivery O2 Flow Rate FiO2 11/16/16 08:00 Room Air 11/16/16 07:44 36.7 75 18 112/62 (79) 97 Room Air 11/16/16 04:01 36.8 68 18 99/52 (68) 99 Room Air 11/16/16 04:00 Room Air 11/15/16 23:59 Room Air 11/15/16 23:18 36.6 79 18 120/64 96 Room Air 2.0 11/15/16 22:10 86 17 110/59 99 11/15/16 21:45 86 17 110/59 99 Nasal Cannula 2.0 11/15/16 21:30 82 18 111/79 100 Nasal Cannula 2.0 11/15/16 21:15 87 23 113/54 100 Nasal Cannula 2.0 11/15/16 21:01 83 12 114/67 100 Nasal Cannula 2.0 Constitutional: General Apperance: heathly-appearing Level of Distress: NAD Psychiatric: Mental Status: active & alert Head: normocephalic Eyes: EOM: EOMI ENMT: normal ENT inspection, hearing grossly normal Neck: supple, no masses Lungs: Respiratory effort: no dyspnea, good air movement Auscultation: breath sounds normal, no wheezing Cardiovascular: Heart Auscultation: RRR, no murmurs, no rubs, no gallops Peripheral Pulses: Bruits: none appreciated Abdomen: Bowel Sounds: normal Inspection & Palpation: soft, no tenderness, guarding & rebound, no masses Musculoskeletal: normal strength (5/5 throughout) Extremities: no edema Neurologic: Cranial Nerves: grossly intact Sensation: grossly intact Data Laboratory Results: Last 24 Hours Test 11/15/16 19:45 11/15/16 19:59 11/16/16 06:35 White Blood Count 5.47 K/uL 2.84 K/uL Red Blood Count 3.41 M/uL 2.62 M/uL Hemoglobin 10.8 g/dL 8.3 g/dL Hematocrit 33.4 % 26.4 % Mean Corpuscular Volume 97.9 fL 100.8 fL Mean Corpuscular Hemoglobin 31.7 pg 31.7 pg Mean Corpuscular Hemoglobin Concent 32.3 g/dl 31.4 g/dl Platelet Count 41 K/uL 38 K/uL Mean Platelet Volume 9.6 fL 10.8 fL Neutrophils (%) (Auto) 75.4 % 46.1 % Lymphocytes (%) (Auto) 21.2 % 44.0 % Monocytes (%) (Auto) 0.7 % 7.0 % Eosinophils (%) (Auto) 0.5 % 1.1 % Basophils (%) (Auto) 0.2 % 0.0 % Neutrophils # (Auto) 4.12 K/uL 1.31 K/uL Lymphocytes # (Auto) 1.16 K/uL 1.25 K/uL Monocytes # (Auto) 0.04 K/uL 0.20 K/uL Eosinophils # (Auto) 0.03 K/uL 0.03 K/uL Basophils # (Auto) 0.01 K/uL 0.00 K/uL RDW Standard Deviation 63.1 fL 67.1 fL RDW Coefficient of Variation 17.7 % 18.3 % Immature Granulocyte % (Auto) 2.0 % 1.8 % Immature Granulocyte # (Auto) 0.11 K/uL 0.05 K/uL Nucleated RBC Absolute Count (auto) 0.09 K/uL 0.08 K/uL Nucleated Red Blood Cells % 1.6 % 2.7 % Hyposegmented Neutrophils 1+ Hypogranular Neutrophils 1+ Toxic Vacuolation 1+ 3+ Platelet Estimate DECREASED Basophilic Stippling 1+ 1+ Anisocytosis PRESENT Prothrombin Time 13.4 SECONDS 14.7 SECONDS Prothromb Time International Ratio 1.2 1.4 Sodium Level 140 mmol/L 145 mmol/L Potassium Level 3.4 mmol/L 3.9 mmol/L Chloride Level 106 mmol/L 114 mmol/L Carbon Dioxide Level 22 mmol/L 24 mmol/L Anion Gap 12.0 mmol/L 18.0 mmol/L 7.0 mmol/L Blood Urea Nitrogen 15 mg/dl 9 mg/dl Creatinine 0.74 mg/dl 0.57 mg/dl Est Creatinine Clear Calc Drug Dose 67.9 ml/min 83.2 ml/min Estimated GFR () 91.2 104.4 Estimated GFR (Non- 78.7 90.0 BUN/Creatinine Ratio 20.4 16.5 Random Glucose 180 mg/dl 94 mg/dl Estimated Average Glucose 111 mg/dl Hemoglobin A1c 5.5 % Calcium Level 9.7 mg/dl 8.1 mg/dl Magnesium Level 2.2 mg/dl 2.5 mg/dl Total Bilirubin 0.9 mg/dl Direct Bilirubin 0.3 mg/dl Aspartate Amino Transf (AST/SGOT) 27 U/L Alanine Aminotransferase (ALT/SGPT) 20 U/L Alkaline Phosphatase 70 U/L Total Creatine Kinase 105 U/L 76 U/L Creatine Kinase MB 1.9 ng/ml 2.2 ng/ml Creatine Kinase MB Ratio 1.8 2.9 Troponin I < 0.015 ng/ml < 0.015 ng/ml Total Protein 7.6 gm/dl Albumin 4.0 gm/dl Lipase 125 U/L Thyroid Stimulating Hormone (TSH) 1.240 uIu/ml Free Thyroxine 1.38 ng/dl Total Triiodothyronine 1.07 ng/ml Bedside Hemoglobin 11.9 g/dl Bedside Hematocrit 35 % Bedside Sodium 139 mEq/L Bedside Potassium 3.5 mEq/L Bedside Chloride 103 mEq/L Bedside Total CO2 23 mEq/l Bedside Blood Urea Nitrogen 15 mg/dl Bedside Creatinine 0.7 mg/dl Bedside Glucose (other) 180 mg/dl Bedside Ionized Calcium (Marianna) 1.15 mmol/l Polychromasia 1+ Activated Partial Thromboplast Time 24.8 SECONDS Partial Thromboplastin Ratio 1.0 Imaging: A head CT scan and a chest x-ray in the emergency room were both unremarkable EKG: Today Sinus rhythm at 66 bpm, normal. MO interval normal. Telemetry reviewed: Other then an episode of nausea and vomiting associated with complete heart block and a very long pause punctuated by 1 escape beat the rhythm has been sinus with no AV block. Assessment & Plan #1. Syncope: Long-standing and now well-documented to be complete heart block associated with nausea and vomiting. Presumably vagally mediated, however there is not a lot of change in the sinus rate suggesting that her AV node is very sensitive to vagal stimulation and that it may not be a profound vagal reaction (there may not be a strong basal depressor component). That is speculative however and we can't test for that since she becomes asystolic. Treatment options are either to avoid situations which produce this response (which in her case we can't avoid since she needs chemotherapy) or to consider pacemaker implantation. The pacemaker may not completely eliminate the symptoms if there is a hypotensive response however it is likely to either make him much less noticeable or eliminate them entirely. I therefore recommended pacemaker implantation, which we can do today although there are some issues noted below. #2. Chronic DIC: She does have a low for bandage and level and platelet count, though should probably be corrected prior to surgery. I will leave that up to hematology to coordinate. #3. Myelodysplastic syndrome: She is neutropenic but her absolute neutrophil count is over 1000 today. I would use antibiotics in any case prior to surgery but this should be an acceptable risk. I discussed all this in detail with the patient and her daughter Evelyn Stroud over the phone, including some the ramifications of the bleeding risk and neutropenia. We are prepared to implant a pacemaker today if we can coordinate these other issues. Thank you for allowing me to participate in her care.
--- NOTE | 2016-11-16 10:57 | Medical Student: [facility] ---
Med Student History & Physical Date & Time of Service: Nov 16, 2016 at 10:29 Chief Complaint: Bradycardia With Less Than 30 Beats Per Minute Primary Care Physician: Benja Henriquez M.D. History of Present Illness Source: patient pt is a 76 yo F who presented to the ED with syncopal episodes preceded by vomiting in the afternoon. At 11am on the day of admission, she received her first injections of vizada chemotherapy for her myelodysplastic syndrome which is being followed by [facility]. For about a year she has had easy bruising and epistaxis which seemed to have resolved after arterial ligation, and the myelodysplastic syndrome was recently diagnosed. She reported no problems immediately after receiving treatment, but took Compazine at home when she felt nauseous. Afterwards, she vomited, which was then followed by syncope. There were about 4 episodes of instances like this. Pt reports a prior history of passing out after vomiting which was never medically treated. Past Medical/Surgical History Medical Problems: (1) Sinus arrhythmia Status: Acute (2) Vomiting Status: Acute Family History Father with vascular disease Mother had episodes of syncope Brother had DC at age 50 (was smoker and drinker) Social History Smoking Status: Never Smoker Smokeless Tobacco Use: No Alcohol Use: occasionally Drug Use: none Marital Status: Occupational Status: retired Immunizations History of Influenza Vaccine: Unknown History of Tetanus Vaccine?: Unknown History of Pneumococcal: Unknown History of Hepatitis B Vaccine: Unknown Allergies Coded Allergies: Shellfish (Verified Allergy, Unknown, ., 11/15/16) Sodium Hyaluronate (Verified Allergy, Unknown, ., 11/15/16) Medications Cholecalciferol (Vitamin D3), 1,000 INTER.UNIT PO DAILY Levothyroxine Sodium (Synthroid), 75 MCG PO DAILY Probiotic Product (Probiotic), 1 CAP PO DAILY Review of Systems Constitutional: No fever, No chills, No fatigue Eyes: No worsening of vision ENT: No hearing loss Respiratory: No cough, No shortness of breath, No dyspnea on exertion Cardiovascular: No chest pain, No edema Abdomen: No pain, No nausea, No vomiting Musculoskeletal: + joint pain Genitourinary - Female: No dysuria, No urinary frequency, No urinary urgency Neurologic: + numbness/tingling (tingling feet at night), No memory loss, No paralysis, No weakness Psychiatric: No depression symptoms, No anxiety Endocrine: No fatigue Hematologic / Lymphatic: + abnormal bleeding/bruising Integumentary: No rash, No itch Allergic / Immunologic: + food allergies (shellfish, oysters) Physical Exam Vital Signs (24 Hours) Date Time Temp Pulse Resp B/P (MAP) Pulse Ox O2 Delivery O2 Flow Rate FiO2 11/16/16 08:00 Room Air 11/16/16 07:44 36.7 75 18 112/62 (79) 97 Room Air 11/16/16 04:01 36.8 68 18 99/52 (68) 99 Room Air 11/16/16 04:00 Room Air 11/15/16 23:59 Room Air 11/15/16 23:18 36.6 79 18 120/64 96 Room Air 2.0 11/15/16 22:10 86 17 110/59 99 11/15/16 21:45 86 17 110/59 99 Nasal Cannula 2.0 11/15/16 21:30 82 18 111/79 100 Nasal Cannula 2.0 11/15/16 21:15 87 23 113/54 100 Nasal Cannula 2.0 11/15/16 21:01 83 12 114/67 100 Nasal Cannula 2.0 11/15/16 20:46 84 17 130/72 100 Nasal Cannula 2.0 11/15/16 20:30 82 18 124/80 100 Nasal Cannula 2.0 11/15/16 20:25 99 Nasal Cannula 2.0 11/15/16 20:24 88 Room Air 11/15/16 20:16 89 15 131/56 100 Room Air 11/15/16 19:49 52 11/15/16 19:48 0 11/15/16 19:46 100 Room Air 11/15/16 19:45 79 13 133/73 100 Room Air 11/15/16 19:44 71 General Appearance: WD/WN, no apparent distress Head: normocephalic, atraumatic Eyes: normal inspection ENT: normal ENT inspection, hearing grossly normal Neck: supple, no adenopathy, thyroid normal, no JVD, no carotid bruits, trachea midline Respiratory/Chest: chest non-tender, lungs clear, normal breath sounds, no respiratory distress, no accessory muscle use Cardiovascular: regular rate, rhythm, no edema, no gallop, no murmur, normal peripheral pulses Abdomen/GI: normal bowel sounds, non tender, soft, no organomegaly, no pulsatile mass Extremities/Musculoskelatal: normal inspection, no calf tenderness, non-tender Neurologic/Psych: alert, normal mood/affect, oriented x 3 Skin: normal color, warm/dry, no rash Lymphatic: no adenopathy Diagnostics Laboratory Results Results Past 24 Hours Test 11/15/16 19:45 11/15/16 19:59 11/16/16 06:35 Range/Units White Blood Count 5.47 2.84 4.8-10.8 K/uL Red Blood Count 3.41 2.62 4.2-5.4 M/uL Hemoglobin 10.8 8.3 12.0-16.0 g/dL Hematocrit 33.4 26.4 37-47 % Mean Corpuscular Volume 97.9 100.8 80-100 fL Mean Corpuscular Hemoglobin 31.7 31.7 25-34 pg Mean Corpuscular Hemoglobin Concent 32.3 31.4 32-36 g/dl Platelet Count 41 38 130-400 K/uL Mean Platelet Volume 9.6 10.8 7.4-10.4 fL Neutrophils (%) (Auto) 75.4 46.1 % Lymphocytes (%) (Auto) 21.2 44.0 % Monocytes (%) (Auto) 0.7 7.0 % Eosinophils (%) (Auto) 0.5 1.1 % Basophils (%) (Auto) 0.2 0.0 % Neutrophils # (Auto) 4.12 1.31 1.4-6.5 K/uL Lymphocytes # (Auto) 1.16 1.25 1.2-3.4 K/uL Monocytes # (Auto) 0.04 0.20 0.11-0.59 K/uL Eosinophils # (Auto) 0.03 0.03 0-0.5 K/uL Basophils # (Auto) 0.01 0.00 0-0.2 K/uL RDW Standard Deviation 63.1 67.1 36.4-46.3 fL RDW Coefficient of Variation 17.7 18.3 11.5-14.5 % Immature Granulocyte % (Auto) 2.0 1.8 % Immature Granulocyte # (Auto) 0.11 0.05 0.00-0.02 K/uL Nucleated RBC Absolute Count (auto) 0.09 0.08 0-0 K/uL Nucleated Red Blood Cells % 1.6 2.7 % Hyposegmented Neutrophils 1+ Hypogranular Neutrophils 1+ Toxic Vacuolation 1+ 3+ Platelet Estimate DECREASED Basophilic Stippling 1+ 1+ Anisocytosis PRESENT Prothrombin Time 13.4 14.7 9.0-12.0 SECONDS Prothromb Time International Ratio 1.2 1.4 0.9-1.1 Sodium Level 140 145 136-145 mmol/L Potassium Level 3.4 3.9 3.5-5.1 mmol/L Chloride Level 106 114 98-107 mmol/L Carbon Dioxide Level 22 24 21-32 mmol/L Anion Gap 12.0 18.0 7.0 3-11 mmol/L Blood Urea Nitrogen 15 9 7-18 mg/dl Creatinine 0.74 0.57 0.60-1.20 mg/dl Est Creatinine Clear Calc Drug Dose 67.9 83.2 ml/min Estimated GFR () 91.2 104.4 Estimated GFR (Non- 78.7 90.0 BUN/Creatinine Ratio 20.4 16.5 10-20 Random Glucose 180 94 70-99 mg/dl Estimated Average Glucose 111 mg/dl Hemoglobin A1c 5.5 4.5-5.6 % Calcium Level 9.7 8.1 8.5-10.1 mg/dl Magnesium Level 2.2 2.5 1.8-2.4 mg/dl Total Bilirubin 0.9 0.2-1 mg/dl Direct Bilirubin 0.3 0-0.2 mg/dl Aspartate Amino Transf (AST/SGOT) 27 15-37 U/L Alanine Aminotransferase (ALT/SGPT) 20 12-78 U/L Alkaline Phosphatase 70 45-117 U/L Total Creatine Kinase 105 76 26-192 U/L Creatine Kinase MB 1.9 2.2 0.5-3.6 ng/ml Creatine Kinase MB Ratio 1.8 2.9 0-3.0 Troponin I < 0.015 < 0.015 0-0.045 ng/ml Total Protein 7.6 6.4-8.2 gm/dl Albumin 4.0 3.4-5.0 gm/dl Lipase 125 73-393 U/L Thyroid Stimulating Hormone (TSH) 1.240 0.300-4.500 uIu/ml Free Thyroxine 1.38 0.80-1.60 ng/dl Total Triiodothyronine 1.07 0.60-1.81 ng/ml Bedside Hemoglobin 11.9 12.0-16.0 g/dl Bedside Hematocrit 35 37-47 % Bedside Sodium 139 135-144 mEq/L Bedside Potassium 3.5 3.3-5.0 mEq/L Bedside Chloride 103 101-112 mEq/L Bedside Total CO2 23 24-31 mEq/l Bedside Blood Urea Nitrogen 15 7-18 mg/dl Bedside Creatinine 0.7 0.6-1.3 mg/dl Bedside Glucose (other) 180 70-99 mg/dl Bedside Ionized Calcium (Marianna) 1.15 1.12-1.32 mmol/l Polychromasia 1+ Activated Partial Thromboplast Time 24.8 21.0-31.0 SECONDS Partial Thromboplastin Ratio 1.0 Impression Assessment and Plan pt is a 76 yo F who presented with several episodes of vomiting with syncope after receiving chemotherapy for myelodysplastic syndrome in the morning of the day of admission. She has a history of similar presentations but never was treated medically. #1. 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 Avoidance of triggering events or implantable pacemaker are options for treatment. Given the likelihood of recurrent nausea/vomiting due to chemotherapy, implantable pacemaker is the recommended treatment option. Obtain cardiology consult to discuss. #2 Chronic DIC: coordinate with hematology, correct low platelets prior to surgery. #3 Myelodysplastic syndrome: Use antibiotics prior to surgery. Advanced Directives Existing Advance Directive: No Existing Living Will: No Existing Power of Bull Wheel Worker: No
--- NOTE | 2016-11-16 11:01 | Oncology Consultation ---
Oncology/Heme Consultation Date of Consultation: Nov 16, 2016. Attending Physician: Taco Royal D.O. Reason for Consultation: thrombocytopenia and hypofibrinogenemia History of Present Illness Ms. Louis is a 76-year-old female that is well known to our clinic. I first met her over a year ago when she presented with a brief epistaxis and a mildly prolonged prothrombin time. 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 Along the way she would also gradually developed significant cytopenias that have led to now to bone marrow examinations with the most recent one being just a week or 2 ago. Both of these have demonstrated changes of underlying myelodysplasia (IPSS low risk) . Because the blood counts have deteriorated rather quickly I counseled the patient to try some sort of therapy for the underlying myelodysplasia and yesterday she received her first dose of Vidaza. She states she did well for a few hours afterwards but then towards evening we developed nausea accompanied then with periods of syncope leading to this current admission. She denies any overt bleeding. She did hit her head with 1 of the syncopal episodes and a CT of the head was unremarkable. There is now anticipation of placing a pacemaker this afternoon. I really can think of no contact tween the developing myelodysplasia in the preceding long-term hypofibrinogenemia. Past Medical/Surgical History Medical Problems: (1) Sinus arrhythmia Status: Acute (2) Vomiting Status: Acute Family History No pertinent family history Social History Smoking Status: Never Smoker Smokeless Tobacco Use: No Drug Use: none Marital Status: Housing Status: lives with family Occupation Status: retired Allergies Coded Allergies: Shellfish (Verified Allergy, Unknown, ., 11/15/16) Sodium Hyaluronate (Verified Allergy, Unknown, ., 11/15/16) Home Medications Scheduled Cholecalciferol (Vitamin D3), 1,000 INTER.UNIT PO DAILY Levothyroxine Sodium (Synthroid), 75 MCG PO DAILY Probiotic Product (Probiotic), 1 CAP PO DAILY Current Inpatient Medications Current Inpatient Medications Medications (Trade) Dose Ordered Sig/Jose Route Start Time Stop Time Status Last Admin Dose Admin Potassium Chloride/Sodium Chloride 1,000 ml @ 125 mls/hr Q8H IV 10/2/17 21:20 12/15/16 21:19 11/16/16 06:01 125 MLS/HR Acetaminophen (Tylenol Tab) 650 mg Q4H PRN PO 11/15/16 21:30 12/15/16 21:29 Cholecalciferol (Vitamin D Tab) 1,000 inter.unit DAILY PO 11/16/16 09:00 12/16/16 08:59 Levothyroxine Sodium (Synthroid Tab) 75 mcg DAILYBB PO 11/16/16 06:00 12/16/16 06:59 11/16/16 06:00 75 MCG Lactobacillus Acidophilus (Floranex Tab) 1 tab DAILY PO 11/16/16 09:00 12/16/16 08:59 Ondansetron HCl (Zofran Inj) 4 mg Q6H PRN IV 11/15/16 21:30 12/15/16 21:29 Cefazolin Sodium (Ancef 1000mg/55 ml D5W) 1,000 mg PREOP IV 11/17/16 06:00 11/17/16 06:01 UNV Review of Systems Constitutional: Negative for weight loss, night sweats, or fever Eyes: Negative for event change of vision ENT: Negative for epistaxis, nasal discharge, sore throat, or deafness Cardiovascular: Negative for chest pain, palpitations, dizziness, diaphoresis Respiratory: Negative for new shortness of breath,hemoptysis, or purulent cough Gastrointestinal: Negative for diarrhea, hematemesis, melena, nausea, vomiting , or dyspepsia Integumentary (skin): Negative for rash or jaundice discoloration Genitourinary: Negative for urinary frequency, hematuria, or dysuria Neurological: Negative for weakness, seizure activity, headache, or dizziness Lymphatic/Hematologic: Negative for petechiae, bleeding or new adenopathy Musculoskeletal: Negative for new joint or back pain Allergic/Immunologic: Negative for unusual rash or pruritis. Physical Exam Date Time Temp Pulse Resp B/P (MAP) Pulse Ox O2 Delivery O2 Flow Rate FiO2 11/16/16 08:00 Room Air 11/16/16 07:44 36.7 75 18 112/62 (79) 97 Room Air 11/16/16 04:01 36.8 68 18 99/52 (68) 99 Room Air 11/16/16 04:00 Room Air 11/15/16 23:59 Room Air 11/15/16 23:18 36.6 79 18 120/64 96 Room Air 2.0 11/15/16 22:10 86 17 110/59 99 11/15/16 21:45 86 17 110/59 99 Nasal Cannula 2.0 11/15/16 21:30 82 18 111/79 100 Nasal Cannula 2.0 11/15/16 21:15 87 23 113/54 100 Nasal Cannula 2.0 11/15/16 21:01 83 12 114/67 100 Nasal Cannula 2.0 11/15/16 20:46 84 17 130/72 100 Nasal Cannula 2.0 11/15/16 20:30 82 18 124/80 100 Nasal Cannula 2.0 11/15/16 20:25 99 Nasal Cannula 2.0 11/15/16 20:24 88 Room Air 11/15/16 20:16 89 15 131/56 100 Room Air 11/15/16 19:49 52 11/15/16 19:48 0 11/15/16 19:46 100 Room Air 11/15/16 19:45 79 13 133/73 100 Room Air 11/15/16 19:44 71 Constitutional: vitals are stable. Eyes: Eyes are DARRYL EOMI without conjuctival erythema or icterus. ENT: External examination was negative for masses. Neck: Negative for masses or palpable thyromegaly Respiratory: Lung sounds were generally clear bilaterally Cardiovascular: Heart was RRR without significant murmur, gallops aoe rubs Gastrointestinal: No palpable hepatic or splenomegaly. The abdomen was soft with normal bowel sounds. Lymphatic system: there was no palpable peripheral lymphadenopathy Musculoskeletal System: The musculoskeletal system seemed concordant with age. Skin: The skin was negative for jaundice. Neurologic exam: The exam was negative for any focal findings. Deep tendon reflexes were equal and symmetrical. Psychiatric exam: Was essentially negative with normal mood and effect. Breast exam: Not done Extremities: Negative for significant edema or erythema Laboratory Results Last 24 Hours Test 11/15/16 19:45 11/15/16 19:59 11/16/16 06:35 White Blood Count 5.47 K/uL 2.84 K/uL Red Blood Count 3.41 M/uL 2.62 M/uL Hemoglobin 10.8 g/dL 8.3 g/dL Hematocrit 33.4 % 26.4 % Mean Corpuscular Volume 97.9 fL 100.8 fL Mean Corpuscular Hemoglobin 31.7 pg 31.7 pg Mean Corpuscular Hemoglobin Concent 32.3 g/dl 31.4 g/dl Platelet Count 41 K/uL 38 K/uL Mean Platelet Volume 9.6 fL 10.8 fL Neutrophils (%) (Auto) 75.4 % 46.1 % Lymphocytes (%) (Auto) 21.2 % 44.0 % Monocytes (%) (Auto) 0.7 % 7.0 % Eosinophils (%) (Auto) 0.5 % 1.1 % Basophils (%) (Auto) 0.2 % 0.0 % Neutrophils # (Auto) 4.12 K/uL 1.31 K/uL Lymphocytes # (Auto) 1.16 K/uL 1.25 K/uL Monocytes # (Auto) 0.04 K/uL 0.20 K/uL Eosinophils # (Auto) 0.03 K/uL 0.03 K/uL Basophils # (Auto) 0.01 K/uL 0.00 K/uL RDW Standard Deviation 63.1 fL 67.1 fL RDW Coefficient of Variation 17.7 % 18.3 % Immature Granulocyte % (Auto) 2.0 % 1.8 % Immature Granulocyte # (Auto) 0.11 K/uL 0.05 K/uL Nucleated RBC Absolute Count (auto) 0.09 K/uL 0.08 K/uL Nucleated Red Blood Cells % 1.6 % 2.7 % Hyposegmented Neutrophils 1+ Hypogranular Neutrophils 1+ Toxic Vacuolation 1+ 3+ Platelet Estimate DECREASED Basophilic Stippling 1+ 1+ Anisocytosis PRESENT Prothrombin Time 13.4 SECONDS 14.7 SECONDS Prothromb Time International Ratio 1.2 1.4 Sodium Level 140 mmol/L 145 mmol/L Potassium Level 3.4 mmol/L 3.9 mmol/L Chloride Level 106 mmol/L 114 mmol/L Carbon Dioxide Level 22 mmol/L 24 mmol/L Anion Gap 12.0 mmol/L 18.0 mmol/L 7.0 mmol/L Blood Urea Nitrogen 15 mg/dl 9 mg/dl Creatinine 0.74 mg/dl 0.57 mg/dl Est Creatinine Clear Calc Drug Dose 67.9 ml/min 83.2 ml/min Estimated GFR () 91.2 104.4 Estimated GFR (Non- 78.7 90.0 BUN/Creatinine Ratio 20.4 16.5 Random Glucose 180 mg/dl 94 mg/dl Estimated Average Glucose 111 mg/dl Hemoglobin A1c 5.5 % Calcium Level 9.7 mg/dl 8.1 mg/dl Magnesium Level 2.2 mg/dl 2.5 mg/dl Total Bilirubin 0.9 mg/dl Direct Bilirubin 0.3 mg/dl Aspartate Amino Transf (AST/SGOT) 27 U/L Alanine Aminotransferase (ALT/SGPT) 20 U/L Alkaline Phosphatase 70 U/L Total Creatine Kinase 105 U/L 76 U/L Creatine Kinase MB 1.9 ng/ml 2.2 ng/ml Creatine Kinase MB Ratio 1.8 2.9 Troponin I < 0.015 ng/ml < 0.015 ng/ml Total Protein 7.6 gm/dl Albumin 4.0 gm/dl Lipase 125 U/L Thyroid Stimulating Hormone (TSH) 1.240 uIu/ml Free Thyroxine 1.38 ng/dl Total Triiodothyronine 1.07 ng/ml Bedside Hemoglobin 11.9 g/dl Bedside Hematocrit 35 % Bedside Sodium 139 mEq/L Bedside Potassium 3.5 mEq/L Bedside Chloride 103 mEq/L Bedside Total CO2 23 mEq/l Bedside Blood Urea Nitrogen 15 mg/dl Bedside Creatinine 0.7 mg/dl Bedside Glucose (other) 180 mg/dl Bedside Ionized Calcium (Marianna) 1.15 mmol/l Polychromasia 1+ Activated Partial Thromboplast Time 24.8 SECONDS Partial Thromboplastin Ratio 1.0 Assessment & Plan The patient has had syncopal episodes with emesis. It is felt that she could benefit from pacemaker placement. Her platelet count is 38,000. Fibrinogens have routinely been around 60-70 units. In preparation for that I have ordered 1 unit of pheresis platelets as well as 10 units of cryoprecipitate in preparation for that. I have discussed this this morning with cardiology as well as the nursing staff and a message was left with Dr. Royal concerning the need for transfusion. 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
--- NOTE | 2016-11-16 11:47 | Family Medicine Progress Note ---
Progress Note Date of Service Nov 16, 2016. Subjective Pt evaluation today including: conversation w/ patient, physical exam, chart review, lab review, review of studies, conversation w/ [employer] consultant (Dr Lai) , review of inpatient medication list Pain: 0 Voiding: no voiding problems Mrs Louis is feeling well this morning. No current chest pain, shortness of breath, dizziness, palpitations, orthopnea, PND, nausea or vomiting. All Other Systems: Reviewed and Negative Medications Current Inpatient Medications Medications (Trade) Dose Ordered Sig/Jose Route Start Time Stop Time Status Last Admin Dose Admin Potassium Chloride/Sodium Chloride 1,000 ml @ 125 mls/hr Q8H IV 11/15/16 21:20 12/15/16 21:19 11/16/16 06:01 125 MLS/HR Acetaminophen (Tylenol Tab) 650 mg Q4H PRN PO 11/15/16 21:30 12/15/16 21:29 Cholecalciferol (Vitamin D Tab) 1,000 inter.unit DAILY PO 11/16/16 09:00 12/16/16 08:59 Levothyroxine Sodium (Synthroid Tab) 75 mcg DAILYBB PO 11/16/16 06:00 12/16/16 06:59 11/16/16 06:00 75 MCG Lactobacillus Acidophilus (Floranex Tab) 1 tab DAILY PO 11/16/16 09:00 12/16/16 08:59 Ondansetron HCl (Zofran Inj) 4 mg Q6H PRN IV 11/15/16 21:30 12/15/16 21:29 Cefazolin Sodium (Ancef 1000mg/55 ml D5W) 1,000 mg PREOP IV 11/17/16 06:00 11/17/16 06:01 Objective Vital Signs Date Time Temp Pulse Resp B/P (MAP) Pulse Ox O2 Delivery O2 Flow Rate FiO2 11/16/16 11:09 36.8 73 18 105/49 (67) 97 Room Air 11/16/16 08:00 Room Air 11/16/16 07:44 36.7 75 18 112/62 (79) 97 Room Air 11/16/16 04:01 36.8 68 18 99/52 (68) 99 Room Air 11/16/16 04:00 Room Air 11/15/16 23:59 Room Air 11/15/16 23:18 36.6 79 18 120/64 96 Room Air 2.0 11/15/16 22:10 86 17 110/59 99 11/15/16 21:45 86 17 110/59 99 Nasal Cannula 2.0 11/15/16 21:30 82 18 111/79 100 Nasal Cannula 2.0 11/15/16 21:15 87 23 113/54 100 Nasal Cannula 2.0 11/15/16 21:01 83 12 114/67 100 Nasal Cannula 2.0 11/15/16 20:46 84 17 130/72 100 Nasal Cannula 2.0 11/15/16 20:30 82 18 124/80 100 Nasal Cannula 2.0 11/15/16 20:25 99 Nasal Cannula 2.0 11/15/16 20:24 88 Room Air 11/15/16 20:16 89 15 131/56 100 Room Air 11/15/16 19:49 52 11/15/16 19:48 0 11/15/16 19:46 100 Room Air 11/15/16 19:45 79 13 133/73 100 Room Air 11/15/16 19:44 71 Physical Exam General Appearance: WD/WN, no apparent distress Eyes: normal inspection Neck: no JVD Respiratory/Chest: chest non-tender, lungs clear, normal breath sounds, no respiratory distress, no accessory muscle use Cardiovascular: regular rate, rhythm, no edema, no murmur Abdomen: normal bowel sounds, non tender, soft 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, no motor/sensory deficits, alert, oriented x 3 Skin: normal color, warm/dry, no rash Laboratory Results 11/16/16 06:35 Red Blood Count 2.62, Mean Corpuscular Volume 100.8, Mean Corpuscular Hemoglobin 31.7, Mean Corpuscular Hemoglobin Concent 31.4, Mean Platelet Volume 10.8, Neutrophils (%) (Auto) 46.1, Lymphocytes (%) (Auto) 44.0, Monocytes (%) ( Auto) 7.0, Eosinophils (%) (Auto) 1.1, Basophils (%) (Auto) 0.0, Neutrophils # ( Auto) 1.31, Lymphocytes # (Auto) 1.25, Monocytes # (Auto) 0.20, Eosinophils # ( Auto) 0.03, Basophils # (Auto) 0.00 11/16/16 06:35 Test 11/15/16 19:45 11/15/16 19:59 11/16/16 06:35 11/16/16 11:08 Hyposegmented Neutrophils 1+ Hypogranular Neutrophils 1+ Platelet Estimate DECREASED Anisocytosis PRESENT Estimated Average Glucose 111 mg/dl Hemoglobin A1c 5.5 % (4.5-5.6) Total Bilirubin 0.9 mg/dl (0.2-1) Direct Bilirubin 0.3 mg/dl (0-0.2) Aspartate Amino Transf (AST/SGOT) 27 U/L (15-37) Alanine Aminotransferase (ALT/SGPT) 20 U/L (12-78) Alkaline Phosphatase 70 U/L (45-117) Total Protein 7.6 gm/dl (6.4-8.2) Albumin 4.0 gm/dl (3.4-5.0) Lipase 125 U/L (73-393) Thyroid Stimulating Hormone (TSH) 1.240 uIu/ml (0.300-4.500) Free Thyroxine 1.38 ng/dl (0.80-1.60) Total Triiodothyronine 1.07 ng/ml (0.60-1.81) Bedside Hemoglobin 11.9 g/dl (12.0-16.0) Bedside Hematocrit 35 % (37-47) Bedside Sodium 139 mEq/L (135-144) Bedside Potassium 3.5 mEq/L (3.3-5.0) Bedside Chloride 103 mEq/L (101-112) Bedside Total CO2 23 mEq/l (24-31) Bedside Blood Urea Nitrogen 15 mg/dl (7-18) Bedside Creatinine 0.7 mg/dl (0.6-1.3) Bedside Glucose (other) 180 mg/dl (70-99) Bedside Ionized Calcium ([place]) 1.15 mmol/l (1.12-1.32) White Blood Count 2.84 K/uL (4.8-10.8) Red Blood Count 2.62 M/uL (4.2-5.4) Hemoglobin 8.3 g/dL (12.0-16.0) Hematocrit 26.4 % (37-47) Mean Corpuscular Volume 100.8 fL (80-100) Mean Corpuscular Hemoglobin 31.7 pg (25-34) Mean Corpuscular Hemoglobin Concent 31.4 g/dl (32-36) Platelet Count 38 K/uL (130-400) Mean Platelet Volume 10.8 fL (7.4-10.4) Neutrophils (%) (Auto) 46.1 % Lymphocytes (%) (Auto) 44.0 % Monocytes (%) (Auto) 7.0 % Eosinophils (%) (Auto) 1.1 % Basophils (%) (Auto) 0.0 % Neutrophils # (Auto) 1.31 K/uL (1.4-6.5) Lymphocytes # (Auto) 1.25 K/uL (1.2-3.4) Monocytes # (Auto) 0.20 K/uL (0.11-0.59) Eosinophils # (Auto) 0.03 K/uL (0-0.5) Basophils # (Auto) 0.00 K/uL (0-0.2) RDW Standard Deviation 67.1 fL (36.4-46.3) RDW Coefficient of Variation 18.3 % (11.5-14.5) Immature Granulocyte % (Auto) 1.8 % Immature Granulocyte # (Auto) 0.05 K/uL (0.00-0.02) Nucleated RBC Absolute Count (auto) 0.08 K/uL (0-0) Nucleated Red Blood Cells % 2.7 % Toxic Vacuolation 3+ Polychromasia 1+ Basophilic Stippling 1+ Prothrombin Time 14.7 SECONDS (9.0-12.0) Prothromb Time International Ratio 1.4 (0.9-1.1) Activated Partial Thromboplast Time 24.8 SECONDS (21.0-31.0) Partial Thromboplastin Ratio 1.0 Anion Gap 7.0 mmol/L (3-11) Est Creatinine Clear Calc Drug Dose 83.2 ml/min Estimated GFR () 104.4 Estimated GFR (Non- 90.0 BUN/Creatinine Ratio 16.5 (10-20) Calcium Level 8.1 mg/dl (8.5-10.1) Magnesium Level 2.5 mg/dl (1.8-2.4) Total Creatine Kinase 76 U/L (26-192) Creatine Kinase MB 2.2 ng/ml (0.5-3.6) Creatine Kinase MB Ratio 2.9 (0-3.0) Troponin I < 0.015 ng/ml (0-0.045) Bedside Glucose 94 mg/dl (70-90) Assessment and Plan 76 year old female with nausea and vomiting post chemotherapy (Vidaza) for myelodysplasia then had multiple syncopal episodes including one in the ER which matched telemetry monitoring of a complete heart block. She has had previous similar occurrences of syncope whenever she vomits since giving . No previous treatment for these. Likely therefore mediated by vagal nerve. Complete heart block episode with associated syncope. - pacer pads on - consult cardiology regarding pacemaker insertion - consult heme/onc given low Plt and possible need for Plt pre-procedure. Myelodysplasia - Consult heme/onc as above Hypothyroidism - continue levothyroxine at home dose VTE Prophylaxis - deferred given need for procedure possibly this afternoon Code - Full Disposition - continue on telemetry Resident Physician Supervision Note: I interviewed and examined the patient. Discussed with Dr. Bui and agree with findings and plan as documented in the note. Any exceptions or clarifications are listed here: None Documented By: Taco Royal feeling better now, notes that she's had multiple episodes of syncope in the past - understands she had transient complete heart block and notes "with vomiting being something that's likely to happen with this chemo, i really don' t want these fainting spells to happen again and again" cardiology present in the room at the same time- discussed case. d/w dr garcia as well. dr lai d/w pt's dtr vitals noted nad breathing unlabored no pallor or icterus complete heart block noted syncope/complete heart block - all in agreement w pacer. to be done this afternoon pancytopenia/myelodysplasia - for platelets and cryo prior to procedure otherwise as above Resident Tracking Resident Involvement: Resident Care Provided Care Provided: Adult Hospital Medicine
[2016-11-16] MEDS ORDERED: LIDOCAINE HCL 1% 20 ML VIAL ONE (14:32)
[2016-11-16] MEDS ORDERED: BACITRACIN 50000 UNIT VIAL ONE (14:32)
[2016-11-16] MEDS ORDERED: BACITRACIN OINT 0.9 GM PKT ONE (14:32)
[2016-11-16] MEDS ORDERED: KEFZOL SPECIAL PROCEDURE STOCK 1 GM ADDVIAL IV ONE (14:55)
--- NOTE | 2016-11-16 14:59 | Procedure Note ---
Pre-Mod Sedation Assessment General Date of Moderate Sedation: Nov 16, 2016. Vital Signs: Vital Signs Past 12 Hours Date Time Temp Pulse Resp B/P (MAP) Pulse Ox O2 Delivery O2 Flow Rate FiO2 11/16/16 14:14 37.1 78 16 113/45 96 11/16/16 13:47 37.2 81 16 104/70 97 11/16/16 13:16 37.1 80 16 123/58 95 11/16/16 12:57 37.2 80 16 123/48 95 11/16/16 12:35 36.9 79 16 130/66 97 11/16/16 12:16 36.8 81 16 121/74 97 11/16/16 12:00 Room Air 11/16/16 11:56 36.9 77 16 134/56 97 11/16/16 11:09 36.8 73 18 105/49 (67) 97 Room Air 11/16/16 08:00 Room Air 11/16/16 07:44 36.7 75 18 112/62 (79) 97 Room Air 11/16/16 04:01 36.8 68 18 99/52 (68) 99 Room Air 11/16/16 04:00 Room Air Review Cardiovascular: regular rate, rhythm, no edema, no gallop, no murmur, normal peripheral pulses Abdomen: normal bowel sounds, non tender, soft Lungs: lungs clear, normal breath sounds Pre-Sedation Airway Assessment Oral Cavity: WNL Smoking Status: Never Smoker Procedure Planning Contraindications-for Mod Sed: None Yes Notes The planned sedation has been discussed with the patient and consent obtained. I have identified the patient, determined the appropriateness of sedation and have assessed the patient immediately prior to the procedure. All medicine(s) and interventions are by my order.
[2016-11-16] MEDS ORDERED: FENTANYL CITRATE INJ 50 MCG/1 ML 2 ML VIAL ONE (15:06)
[2016-11-16] MEDS ORDERED: MIDAZOLAM HCL 5 MG/ML 1 ML VIAL ONE (15:06)
[2016-11-16 15:34] LABS: HEMATOCRIT 28.5 % (37-47); MEAN CELL VOLUME 102.2 fL (80-100); MEAN CORPUSCULAR HEMOGLOBIN 31.5 pg (25-34); MEAN CORPUSCULAR HGB CONC 30.9 g/dl (32-36); MEAN PLATELET VOLUME 9.7 fL (7.4-10.4); PLATELET COUNT 61 K/uL (130-400); RED BLOOD COUNT 2.79 M/uL (4.2-5.4)
[2016-11-16 15:49] LABS: CKMB/CK RATIO 1.6 (0-3.0)
[2016-11-16 16:14] LABS: BASO % 0.3 %; BASO ABS # 0.01 K/uL (0-0.2); COMPLETE YES; IG% 1.3 %; LYMPH ABS # 1.26 K/uL (1.2-3.4); MONO % 1.7 %; NEUT % 53.7 %; POLYCHROMASIA 1+; VACUOLIZATION 2+
--- NOTE | 2016-11-16 16:25 | [facility] Operative Report ---
Operative Report Operative Date Nov 16, 2016. Pre-Operative Diagnosis Intermittent complete heart block Post-Operative Diagnosis same Procedure(s) Performed Dual chamber pacemaker implantation Tyrex pouch placement Surgeon Dr. Lai Nurse Practitioner Hospitalist Surgeon(s) none Estimated Blood Loss 50 cc Findings Good lead position, good measurements More blood loss than normal, not excessive Specimens None Anesthesia local with sedation Complication(s) None Disposition PCU Description of Procedure After obtaining informed consent for the procedure, the patient was brought to the laboratory and prepped and draped in the standard sterile manner. The left prepectoral region was anesthetized with 1% lidocaine local anesthetic and left axillary venipuncture was performed by percutaneous technique and a guidewire placed through the left subclavian vein into the superior vena cava. The area was further infiltrated with 1% lidocaine local anesthetic and a 5 cm incision was made parallel to the left clavicle and 2 cm below it and carried down to the anterior pectoralis fascia. A pacemaker pocket was formed by blunt dissection anterior to the pectoralis fascia and a bacitracin-soaked sponge (50, 000 units in 50 cc normal saline solution) was placed in the pocket. An 8 Vietnamese Medtronic lead introducer was placed over the guidewire into the left subclavian vein, the dilator and guidewire were removed and a bipolar active fixation steroid tipped ventricular lead was advanced through the introducer into the superior vena cava. A guidewire was placed through the introducer and the introducer was stripped from the lead and guidewire. Another 8 Vietnamese Medtronic lead introducer was placed over the guidewire into the left subclavian vein, the dilator and guidewire were removed and a bipolar active fixation steroid tipped atrial lead was advanced through the introducer into the superior vena cava. A guidewire was placed back through the introducer and the introducer was stripped from the lead and guidewire. Using a curved stylette the ventricular lead was advanced through the right ventricular outflow tract into the pulmonary artery and then using a straight stylette was positioned in the right ventricular apex. The screw was extended fixing the lead in position. Pacing and sensing thresholds were evaluated in bipolar configuration and are recorded on the implant data sheet. Using a curved stylette the atrial lead was positioned in the region of the atrial appendage and the screw extended fixing the lead in position. Pacing and sensing thresholds were evaluated in bipolar configuration and are recorded on the implant data sheet. Once the leads were in position they were attached to the anterior pectoralis fascia using 2 sutures of 2-0 silk around each lead collar. The bacitracin- soaked sponge was removed from the pocket, hemostasis was obtained, the pacemaker was attached to the leads and placed in a Tyrex antibiotic impregnated pouch and the pacemaker and pouch were placed in the pocket with the leads coiled beneath it. A pursestring suture of 3-0 Vicryl was placed around the lead insertion site to minimize the risk of bleeding. The incision was closed with a running double subcutaneous closure of 3-0 V-Lock absorbable suture, followed by running subcuticular skin closure of 4-0 V-Lock absorbable suture. Bacitracin ointment was placed on the incision and a pressure dressing applied. I attest to the content of the Intraoperative Record and any orders documented therein. Any exceptions are noted below.
--- NOTE | 2016-11-16 16:26 | Procedure Note ---
Post-Mod Sedation Assessment General Date of Moderate Sedation Nov 16, 2016. Vital Signs: Vital Signs Past 12 Hours Date Time Temp Pulse Resp B/P (MAP) Pulse Ox O2 Delivery O2 Flow Rate FiO2 11/16/16 14:14 37.1 78 16 113/45 96 11/16/16 13:47 37.2 81 16 104/70 97 11/16/16 13:16 37.1 80 16 123/58 95 11/16/16 12:57 37.2 80 16 123/48 95 11/16/16 12:35 36.9 79 16 130/66 97 11/16/16 12:16 36.8 81 16 121/74 97 11/16/16 12:00 Room Air 11/16/16 11:56 36.9 77 16 134/56 97 11/16/16 11:09 36.8 73 18 105/49 (67) 97 Room Air 11/16/16 08:00 Room Air 11/16/16 07:44 36.7 75 18 112/62 (79) 97 Room Air Review - Discharge Criteria Vital Signs Stable: Yes Alert/Oriented/Conversant: Yes Returned to Baseline Mental St: Yes Nausea Absent/Minimal: Yes Pain/Discomfort/Absent/Minimal: Yes Normal/Baseline Respirations: Yes Active Bleeding?: No
[2016-11-16] MEDS ORDERED: KETOROLAC TROMETHAMINE 10 MG TAB PO PRN (16:30)
[2016-11-16] MEDS ORDERED: NURSING VERBAL MED ORDER ONE (19:00)
[2016-11-16] MEDS: CEFAZOLIN IV 2,000 MG in DEXTROSE 5% 50ML 50 ML IV SCH (23:09)
[2016-11-16] MEDS: ACETAMINOPHEN 325 MG TAB PO PRN (23:13)
[2016-11-17] VITALS (19 sets, daily range): BP systolic 80–127; BP diastolic 49–74; PULSE 64–149; TEMP 36.8–37.2; O2SAT 95–100
[2016-11-17] MEDS ORDERED: METOPROLOL TARTRATE 1 MG/ML VIAL IV STA ×3 (01:33→04:58)
[2016-11-17] MEDS ORDERED: METOPROLOL TARTRATE 1 MG/ML VIAL ONE ×2 (01:35→03:45)
[2016-11-17] MEDS ORDERED: NURSING VERBAL MED ORDER ONE ×4 (03:45→05:15)
[2016-11-17] MEDS ORDERED: SODIUM CHLORIDE 0.9% 500ML 500 ML IV STA ×2 (03:54→05:30)
[2016-11-17] MEDS: LEVOTHYROXINE 75 MCG TAB PO SCH (05:17)
[2016-11-17] MEDS ORDERED: HEPARIN IV LOW DOSE NO BOLUS SCH (05:55)
[2016-11-17] MEDS ORDERED: CEFAZOLIN SOD 1000MG/55 ML D5W IV SCH (06:00)
[2016-11-17 06:28] LABS: HEMATOCRIT 25.7 % (37-47); MEAN CELL VOLUME 102.4 fL (80-100); MEAN CORPUSCULAR HEMOGLOBIN 31.5 pg (25-34); MEAN CORPUSCULAR HGB CONC 30.7 g/dl (32-36); MEAN PLATELET VOLUME 8.9 fL (7.4-10.4); PLATELET COUNT 53 K/uL (130-400); RED BLOOD COUNT 2.51 M/uL (4.2-5.4); WHITE BLOOD COUNT 3.21 K/uL (4.8-10.8)
[2016-11-17 06:45] LABS: INR 1.2 (0.9-1.1); PROTHROMBIN TIME (PATIENT) 12.7 SECONDS (9.0-12.0)
[2016-11-17 06:49] LABS: BASO % 0.3 %; BASO ABS # 0.01 K/uL (0-0.2); COMPLETE YES; EOS % 0.6 %; IG% 0.9 %; LYMPH % 50.2 %; LYMPH ABS # 1.61 K/uL (1.2-3.4); MONO % 6.5 %; NEUT % 41.5 %; POLYCHROMASIA 1+; VACUOLIZATION 1+
[2016-11-17 07:06] LABS: BUN/CREATININE RATIO 19.5 (10-20); CALCIUM 7.8 mg/dl (8.5-10.1); CREATININE 0.68 mg/dl (0.60-1.20); MAGNESIUM 2.4 mg/dl (1.8-2.4); POTASSIUM 4.2 mmol/L (3.5-5.1)
[2016-11-17] MEDS: CEFAZOLIN IV 2,000 MG in DEXTROSE 5% 50ML 50 ML IV SCH (07:35)
[2016-11-17] MEDS ORDERED: ATROPINE SULFATE 0.1 MG/ML 10 ML SYR IV ONE (07:44)
--- NOTE | 2016-11-17 07:44 | DIAGNOSTIC IMAGING REPORT ---
CHEST 2 VIEWS ROUTINE CLINICAL HISTORY: 76 years-old Female presenting with EXACT TIME ORDERED Evaluate for pneumothorax and lead placement. TECHNIQUE: PA and lateral views of the chest were obtained. COMPARISON: 11/15/2016. FINDINGS: Left-sided pacer with leads to the right atrium and right ventricular apex now in place. Atherosclerosis of the aortic arch. Top normal size of the cardiac silhouette. Mild prominence of lung markings, unchanged. No new focal infiltrate. No large effusion or pneumothorax. Osseous structures normal. Upper abdomen normal. IMPRESSION: 1. Status post 2-lead pacer placement. No pneumothorax. Electronically signed by: Satish Dietrich M.D. 11/17/2016 7:43 AM Dictated Date/Time: 11/17/2016 7:42 AM
--- NOTE | 2016-11-17 07:51 | Progress Note ---
Progress Note Date of Service Nov 17, 2016. Progress Note Called overnight regarding patient heart rate Patient noted to have 1 minute long episode of atrial fibrillation. Remained hemodynamically stable. I was notified shortly thereafter that she had had sustained atrial fibrillation. Mild palpitations but hemodynamically stable 5 mg IV Lopressor administered with transient improvement in BP Rate increased again from 120-140 shortly thereafter with BP in the 90s systolic 2.5 Lopressor IV given with minimal improvement; this was followed by a second dose of 2.5 mg IV, which brought down to < 110. Recommended to nursing to monitor until seen by cardiology. I had considered starting IV heparin as she is not known to have Afib but in the setting of recent procedure, thrombocytopenia, and noted history of chronic DIC, I have decided to hold off until seen by cardiology today.
--- NOTE | 2016-11-17 09:13 | Hematology/Oncology Prog Note ---
Hematology/Onc Progress Note Date of Service Nov 17, 2016. Diagnoses MDS Dysfibrinogenemia Heart block status post pacemaker Medications Medications Administered Medications (Trade) Dose Ordered Sig/Jose Route Start Time Stop Time Status Last Admin Dose Admin Magnesium Sulfate (Magnesium Sulfate) 2 gm NOW STAT IV 11/15/16 19:40 11/15/16 19:42 DC 11/15/16 19:40 2 GM Metoclopramide HCl (Reglan Inj) 10 mg NOW STAT IV 11/15/16 19:41 11/15/16 19:42 DC 11/15/16 19:41 10 MG Sodium Chloride 1,000 ml @ 999 mls/hr Q1H1M STAT IV 11/15/16 19:41 11/15/16 20:41 DC 11/15/16 19:41 999 MLS/HR Atropine Sulfate (Atropine Sulfate 0.1MG/Ml Inj) 1 mg NOW STAT IV 11/15/16 19:49 11/15/16 19:50 DC 11/15/16 19:47 0.5 MG Potassium Chloride 10 meq/ Prmx 100 ml @ 100 mls/hr NOW STAT IV 11/15/16 20:00 11/15/16 20:59 DC 11/15/16 20:08 100 MLS/HR Ondansetron HCl (Zofran Inj) 4 mg STK-MED ONCE .ROUTE 11/15/16 21:06 11/15/16 21:07 DC 11/15/16 21:12 4 MG Potassium Chloride/Sodium Chloride 1,000 ml @ 125 mls/hr Q8H IV 11/15/16 21:20 11/16/16 19:04 DC 11/16/16 06:01 125 MLS/HR Levothyroxine Sodium (Synthroid Tab) 75 mcg DAILYBB PO 11/16/16 06:00 12/16/16 06:59 11/17/16 05:17 75 MCG Ondansetron HCl (Zofran Inj) 4 mg Q6H PRN IV 11/15/16 21:30 12/15/16 21:29 11/16/16 23:57 4 MG Cefazolin Sodium (Kefzol Iv) 1 gm STK-MED ONCE IV 11/16/16 14:55 11/16/16 14:56 DC 11/16/16 14:55 1 GM Midazolam HCl (Versed Inj) 5 mg STK-MED ONCE .ROUTE 11/16/16 15:06 11/16/16 15:07 DC 11/16/16 15:06 5 MG Fentanyl Citrate (Fentanyl Inj) 100 mcg STK-MED ONCE .ROUTE 11/16/16 15:06 11/16/16 15:07 DC 11/16/16 15:06 100 MCG Cefazolin Sodium 2000 mg/Dextrose 60 ml @ 100 mls/hr Q8H IV 11/16/16 23:00 11/17/16 22:59 11/17/16 07:35 100 MLS/HR Acetaminophen (Tylenol Tab) 650 mg Q4H PRN PO 11/16/16 16:30 12/16/16 16:29 11/16/16 23:13 650 MG Metoprolol Tartrate (Lopressor Iv) 5 mg STK-MED ONCE .ROUTE 11/17/16 01:35 11/17/16 01:36 DC 11/17/16 01:38 5 MG Metoprolol Tartrate (Lopressor Iv) 5 mg STK-MED ONCE .ROUTE 11/17/16 03:45 11/17/16 03:46 DC 11/17/16 03:57 5 MG Sodium Chloride 500 ml @ 999 mls/hr NOW STAT IV 11/17/16 03:54 11/17/16 04:24 DC 11/17/16 03:56 999 MLS/HR Metoprolol Tartrate (Lopressor Iv) 2.5 mg NOW STAT IV 11/17/16 04:58 11/17/16 04:59 DC 11/17/16 05:16 2.5 MG Sodium Chloride 500 ml @ 500 mls/hr NOW STAT IV 11/17/16 05:30 11/17/16 06:29 DC 11/17/16 05:35 500 MLS/HR Subjective Ms. Louis is doing well today. She went into AFib overnight last night, following her pacer placement. She is in sinus rhythm now and feels fine. Her pacer pocket is mildly tender, but is not swollen, warm, or red. She denies any nausea or vomiting. Review of Systems: Constitutional: No fever ENT: No unusual epistaxis Respiratory: No shortness of breath, No hemoptysis Cardiovascular: No chest pain Abdomen: No pain, No nausea, No GI bleeding Female : No dysuria, No hematuria Heme: No abnormal bleeding/bruising Vital Signs Vital Signs Past 12 Hours Date Time Temp Pulse Resp B/P (MAP) Pulse Ox O2 Delivery O2 Flow Rate FiO2 11/17/16 08:00 Room Air 11/17/16 07:22 36.8 109 16 94/69 (77) 95 Nasal Cannula 2.0 11/17/16 05:35 70 107/70 (82) 11/17/16 05:20 119 100/63 (75) 11/17/16 05:20 92/74 (80) 11/17/16 05:16 119 100/63 11/17/16 04:29 37.1 120 17 110/64 (79) 98 Room Air 11/17/16 04:00 Room Air 11/17/16 03:57 121 110/64 11/17/16 03:49 84/64 (71) 11/17/16 03:49 80/60 (67) 11/17/16 02:34 125 92/53 (66) 124 102/70 (81) 136 96/64 (75) 11/17/16 01:41 119 113/65 (81) 97 Nasal Cannula 2.0 11/17/16 01:40 125 112/66 (81) 98 Nasal Cannula 2.0 11/17/16 01:39 140 103/64 (77) 96 Nasal Cannula 2.0 11/17/16 01:38 135 127/72 (90) 96 Nasal Cannula 2.0 11/17/16 01:38 128 114/58 11/17/16 01:37 149 114/58 (76) 97 Nasal Cannula 2.0 11/17/16 01:18 138 18 125/59 (81) 96 Nasal Cannula 2.0 11/17/16 00:40 37.2 70 18 119/58 (78) 96 Room Air 11/17/16 00:25 135 18 119/60 (79) 96 Room Air 11/17/16 00:01 Room Air Physical Exam Constitutional: General Apperance: heathly-appearing Level of Distress: NAD Psychiatric: Mental Status: active & alert Orientation: oriented except where noted Lungs: Auscuitation: CTA except as noted Cardiovascular: Heart Auscultation: RRR Abdomen: Inspection & Palpation: soft, no tenderness, guarding & rebound Extremities: no edema Laboratory Last 24 Hours Test 11/16/16 11:08 11/16/16 15:12 11/17/16 06:16 11/17/16 08:22 Bedside Glucose 94 mg/dl White Blood Count 3.00 K/uL 3.21 K/uL Red Blood Count 2.79 M/uL 2.51 M/uL Hemoglobin 8.8 g/dL 7.9 g/dL Hematocrit 28.5 % 25.7 % Mean Corpuscular Volume 102.2 fL 102.4 fL Mean Corpuscular Hemoglobin 31.5 pg 31.5 pg Mean Corpuscular Hemoglobin Concent 30.9 g/dl 30.7 g/dl Platelet Count 61 K/uL 53 K/uL Mean Platelet Volume 9.7 fL 8.9 fL Neutrophils (%) (Auto) 53.7 % 41.5 % Lymphocytes (%) (Auto) 42.0 % 50.2 % Monocytes (%) (Auto) 1.7 % 6.5 % Eosinophils (%) (Auto) 1.0 % 0.6 % Basophils (%) (Auto) 0.3 % 0.3 % Neutrophils # (Auto) 1.61 K/uL 1.33 K/uL Lymphocytes # (Auto) 1.26 K/uL 1.61 K/uL Monocytes # (Auto) 0.05 K/uL 0.21 K/uL Eosinophils # (Auto) 0.03 K/uL 0.02 K/uL Basophils # (Auto) 0.01 K/uL 0.01 K/uL RDW Standard Deviation 70.0 fL 69.6 fL RDW Coefficient of Variation 18.8 % 18.6 % Immature Granulocyte % (Auto) 1.3 % 0.9 % Immature Granulocyte # (Auto) 0.04 K/uL 0.03 K/uL Nucleated RBC Absolute Count (auto) 0.11 K/uL 0.10 K/uL Nucleated Red Blood Cells % 3.6 % 3.1 % Hypogranular Neutrophils 1+ 2+ Toxic Vacuolation 2+ 1+ Polychromasia 1+ 1+ Basophilic Stippling 1+ OCCASIONAL Fibrinogen 128 mg/dl Total Creatine Kinase 138 U/L Creatine Kinase MB 2.2 ng/ml Creatine Kinase MB Ratio 1.6 Troponin I < 0.015 ng/ml Macrocytosis PRESENT Prothrombin Time 12.7 SECONDS Prothromb Time International Ratio 1.2 Activated Partial Thromboplast Time 25.3 SECONDS Partial Thromboplastin Ratio 1.0 Sodium Level 144 mmol/L Potassium Level 4.2 mmol/L Chloride Level 114 mmol/L Carbon Dioxide Level 25 mmol/L Anion Gap 5.0 mmol/L Blood Urea Nitrogen 13 mg/dl Creatinine 0.68 mg/dl Est Creatinine Clear Calc Drug Dose 69.6 ml/min Estimated GFR () 98.5 Estimated GFR (Non- 85.0 BUN/Creatinine Ratio 19.5 Random Glucose 104 mg/dl Calcium Level 7.8 mg/dl Magnesium Level 2.4 mg/dl Assessment & Plan 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 She presented with vagal syncope secondary to vomiting. She is now status post pacemaker. She was in atrial fibrillation for much of last night, though she's back in sinus rhythm now. I would try to avoid anticoagulation in her case, given her thrombocytopenia and low fibrinogen. I also would give her a unit of PRBCs, given her cardiac issues. We will arrange to see her in the office in the coming weeks to discuss further treatment.
[2016-11-17] MEDS: CHOLECALCIFEROL 1000 INTER.UNIT TAB PO SCH (09:24)
[2016-11-17] MEDS: LACTOBACILLUS ACIDOPHILUS (FLORANEX) TAB PO SCH (09:24)
--- NOTE | 2016-11-17 09:31 | Cardiology Follow-Up ---
Subjective Date of Service: Nov 17, 2016. 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 She had nausea and vomiting associated with her chemotherapy and had multiple episodes of syncope yesterday, several documented with long pauses associated with complete heart block while she was nauseous and vomiting. This is consistent with her prior history. Interestingly one of her daughters has swallow syncope associated with heart block and her mother had some type of heart block which is unclear but may be similar, so there may be some sort of genetic component. Her one daughter is a infectious disease specialist and I talked to her on the phone to obtain some of this history as well as interviewing the patient in the room. As noted her lightheadedness and syncope is long-standing associate with nausea and vomiting, however in the past it has been sporadic and not intrusive. Now with the chemotherapy and requiring further treatments it will be difficult to avoid. Following the episodes in the ambulance and in the emergency room (which were documented) she has had no further lightheadedness or dizziness but also no further nausea or vomiting. She has no known heart disease and a recent echocardiogram was normal. Her chronic DIC is associated with a low fibrinogen and platelet count, that is also being followed by hematology. I implanted a dual-chamber pacemaker yesterday using fibrinogen and platelets during the procedure, also a Tyrex pouch was used to minimize the risk of infection for her neutropenia. She did well during the surgery is no obvious complications. She did go into atrial fibrillation during the night which is now resolved. This was symptomatic. She has minimal incisional discomfort. Social History Smoking Status: Never Smoker History of Alcohol Use: Yes (3 glasses of wine per week) Review of Systems Respiratory: No shortness of breath, No hemoptysis Cardiac: + palpitations (during atrial fibrillation), No chest pain Objective Vital Signs Past 12 Hours Date Time Temp Pulse Resp B/P (MAP) Pulse Ox O2 Delivery O2 Flow Rate FiO2 11/17/16 08:00 Room Air 11/17/16 07:22 36.8 109 16 94/69 (77) 95 Nasal Cannula 2.0 11/17/16 05:35 70 107/70 (82) 11/17/16 05:20 119 100/63 (75) 11/17/16 05:20 92/74 (80) 11/17/16 05:16 119 100/63 11/17/16 04:29 37.1 120 17 110/64 (79) 98 Room Air 11/17/16 04:00 Room Air 11/17/16 03:57 121 110/64 11/17/16 03:49 84/64 (71) 11/17/16 03:49 80/60 (67) 11/17/16 02:34 125 92/53 (66) 124 102/70 (81) 136 96/64 (75) 11/17/16 01:41 119 113/65 (81) 97 Nasal Cannula 2.0 11/17/16 01:40 125 112/66 (81) 98 Nasal Cannula 2.0 11/17/16 01:39 140 103/64 (77) 96 Nasal Cannula 2.0 11/17/16 01:38 135 127/72 (90) 96 Nasal Cannula 2.0 11/17/16 01:38 128 114/58 11/17/16 01:37 149 114/58 (76) 97 Nasal Cannula 2.0 11/17/16 01:18 138 18 125/59 (81) 96 Nasal Cannula 2.0 11/17/16 00:40 37.2 70 18 119/58 (78) 96 Room Air 11/17/16 00:25 135 18 119/60 (79) 96 Room Air 11/17/16 00:01 Room Air Last Recorded Weight-Kilograms: 81.500 Physical Exam Constitutional: General Apperance: heathly-appearing Level of Distress: NAD Lungs: Respiratory effort: no dyspnea, good air movement Auscultation: breath sounds normal, no wheezing Cardiovascular: Heart Auscultation: RRR, no murmurs, no rubs, no gallops Peripheral Pulses: Bruits: none appreciated Extremities: no edema The incision is clean and dry, there is no hematoma or drainage. Minimal ( expected) ecchymosis. Data Laboratory Results: Last 24 Hours Test 11/16/16 11:08 11/16/16 15:12 11/17/16 06:16 11/17/16 08:22 Bedside Glucose 94 mg/dl White Blood Count 3.00 K/uL 3.21 K/uL Red Blood Count 2.79 M/uL 2.51 M/uL Hemoglobin 8.8 g/dL 7.9 g/dL Hematocrit 28.5 % 25.7 % Mean Corpuscular Volume 102.2 fL 102.4 fL Mean Corpuscular Hemoglobin 31.5 pg 31.5 pg Mean Corpuscular Hemoglobin Concent 30.9 g/dl 30.7 g/dl Platelet Count 61 K/uL 53 K/uL Mean Platelet Volume 9.7 fL 8.9 fL Neutrophils (%) (Auto) 53.7 % 41.5 % Lymphocytes (%) (Auto) 42.0 % 50.2 % Monocytes (%) (Auto) 1.7 % 6.5 % Eosinophils (%) (Auto) 1.0 % 0.6 % Basophils (%) (Auto) 0.3 % 0.3 % Neutrophils # (Auto) 1.61 K/uL 1.33 K/uL Lymphocytes # (Auto) 1.26 K/uL 1.61 K/uL Monocytes # (Auto) 0.05 K/uL 0.21 K/uL Eosinophils # (Auto) 0.03 K/uL 0.02 K/uL Basophils # (Auto) 0.01 K/uL 0.01 K/uL RDW Standard Deviation 70.0 fL 69.6 fL RDW Coefficient of Variation 18.8 % 18.6 % Immature Granulocyte % (Auto) 1.3 % 0.9 % Immature Granulocyte # (Auto) 0.04 K/uL 0.03 K/uL Nucleated RBC Absolute Count (auto) 0.11 K/uL 0.10 K/uL Nucleated Red Blood Cells % 3.6 % 3.1 % Hypogranular Neutrophils 1+ 2+ Toxic Vacuolation 2+ 1+ Polychromasia 1+ 1+ Basophilic Stippling 1+ OCCASIONAL Fibrinogen 128 mg/dl Total Creatine Kinase 138 U/L Creatine Kinase MB 2.2 ng/ml Creatine Kinase MB Ratio 1.6 Troponin I < 0.015 ng/ml Macrocytosis PRESENT Prothrombin Time 12.7 SECONDS Prothromb Time International Ratio 1.2 Activated Partial Thromboplast Time 25.3 SECONDS Partial Thromboplastin Ratio 1.0 Sodium Level 144 mmol/L Potassium Level 4.2 mmol/L Chloride Level 114 mmol/L Carbon Dioxide Level 25 mmol/L Anion Gap 5.0 mmol/L Blood Urea Nitrogen 13 mg/dl Creatinine 0.68 mg/dl Est Creatinine Clear Calc Drug Dose 69.6 ml/min Estimated GFR () 98.5 Estimated GFR (Non- 85.0 BUN/Creatinine Ratio 19.5 Random Glucose 104 mg/dl Calcium Level 7.8 mg/dl Magnesium Level 2.4 mg/dl Imaging: Chest x-ray shows good lead position and no pneumothorax EKG: Sinus rhythm following the procedure, later on atrial fibrillation with a moderately rapid ventricular response. Telemetry reviewed: Sinus rhythm after the procedure, development of atrial fibrillation at around 12:45 AM, return to sinus rhythm spontaneously around 9 AM. Device evaluation: Excellent pacing and sensing characteristics. Assessment and Plan #1. Syncope: Long-standing and now well-documented to be complete heart block associated with nausea and vomiting. Presumably vagally mediated, however there is not a lot of change in the sinus rate suggesting that her AV node is very sensitive to vagal stimulation and that it may not be a profound vagal reaction (there may not be a strong basal depressor component). That is speculative however and we can't test for that since she becomes asystolic. We will have to see if this corrects her symptoms now that she has a pacemaker. #2. Chronic DIC: She does have a low for fibrinogen and platelet count, this may be somewhat protective for her atrial fibrillation to minimize stroke risk, but does place her at higher risk of bleeding if we need to anticoagulate. #3. Myelodysplastic syndrome: She is neutropenic but her absolute neutrophil count is over 1000. With the use of prophylactic antibiotics and the Tyrex pouch hopefully her risk of infection is not increased. #4. Atrial fibrillation: She developed atrial fibrillation following the surgery but did not have atrial fibrillation during the surgery. Sometimes we induce atrial fibrillation with lead placement, although usually corrects fairly quickly. After lead placement it is relatively uncommon, but does occur. As often as not it may indicate that she has long-standing paroxysmal atrial fibrillation. The device will monitor for that so we will know in the future, the pacemaker should not increase the long-term risk of atrial fibrillation. For the moment given her coagulopathy and the brief duration of the atrial fibrillation are not going start anticoagulants. Her heart rate was a little fast during the arrhythmia but I don't think we need to place her on any rate control medications unless she has recurrence. I will see her Tuesday and interrogate the device to see if she has recurrence. Thank you for allowing me to participate in her care.
--- NOTE | 2016-11-17 09:33 | Discharge Instructions ---
Discharge Instructions Date of Service Nov 17, 2016. Admission Reason for Admission: Complete heart block Discharge Discharge Diagnosis / Problem: pacemaker implantation Discharge Goals Goal(s): Improve disease control Activity Recommendations Activity Limitations: resume your previous activity . Instructions / Follow-Up Instructions / Follow-Up ACTIVITY RECOMMENDATIONS: * Do not raise affected arm over head for 2 weeks. SPECIAL CARE INSTRUCTIONS: * If bleeding occurs, apply direct pressure to area for 5 minutes. * Call your doctor if you have severe pain, fever, drainage or bleeding at site. * Keep dressing on and dry for 48 hours then remove. * Keep any scheduled doctor's appointment. * Implant Card - hand held device with website information given. SKIN IRRITATION: * You may experience some redness and/or swelling in the area where radiation was administered. If any skin irritation occurs, please contact your family physician. FOLLOW UP VISIT: Dr. Lai 11/19/2016, 10:00 AM. Current Hospital Diet Patient's current hospital diet: AHA Diet (Heart Healthy), Diabetes Type 2 Diet Discharge Diet Recommended Diet: N/A Procedures Procedures Performed: Dual chamber pacemaker implantation on 11/16/2016 Pending Studies Studies pending at discharge: no Laboratory Results Hemoglobin A1c Test 11/15/16 19:45 Range/Units Estimated Average Glucose 111 mg/dl Hemoglobin A1c 5.5 4.5-5.6 % Medical Emergencies . Who to Call and When: Medical Emergencies: If at any time you feel your situation is an emergency, please call 911 immediately. . Non-Emergent Contact Non-Emergency issues call your: Primary Care Provider . . "Provider Documentation" section prepared by Molina Lai. . VTE Core Measure Inpt VTE Proph given/why not?: SCD's
--- NOTE | 2016-11-17 10:19 | Clinical Documentation Query ---
CLINICAL DOCUMENTATION QUERY Dr. GOMEZ, In your clinical opinion is this patient being managed for: ( ) Acute blood loss anemia ( ) Not Agree ( ) Other explanation of clinical findings (Please Explain) ( ) Unable to determine (Please Define) ( ) Need to Discuss The medical record reflects the following clinical findings, treatment, and risk factors. Clinical Indicators: 76 yo female presenting with complete heart block, requiring insertion of a permanent dual chamber pacemaker. Operative record indicates "More blood loss than normal, not excessive". EBL was 50 cc Treatment: monitor CBC's, 1U PRBC Risk Factors: surgical blood loss, MDS Please clarify and document your clinical opinion in the progress notes and discharge summary. Terms such as "probable", "suspected", "likely", "questionable", "possible", or "still to be ruled out" are acceptable. IF IN AGREEMENT, YOU MUST DOCUMENT ABOVE DIAGNOSTIC STATEMENT IN DAILY PROGRESS NOTES AND DISCHARGE SUMMARY. This document is not part of the patient's record. Thank You, Shefali Logan, ANIL [phone]
--- NOTE | 2016-11-17 10:21 | Clinical Documentation Query ---
CLINICAL DOCUMENTATION QUERY Dr. HAGEN, In your clinical opinion is this patient being managed for: ( ) Acute blood loss anemia (x ) Not Agree - see notes regarding MDS, heme/onc notes as well - chronic process ( ) Other explanation of clinical findings (Please Explain) ( ) Unable to determine (Please Define) ( ) Need to Discuss The medical record reflects the following clinical findings, treatment, and risk factors. Clinical Indicators: 76 yo female presenting with complete heart block, requiring insertion of a permanent dual chamber pacemaker. Operative record indicates "More blood loss than normal, not excessive". EBL was 50 cc Treatment: monitor CBC's, 1U PRBC Risk Factors: surgical blood loss, MDS Please clarify and document your clinical opinion in the progress notes and discharge summary. Terms such as "probable", "suspected", "likely", "questionable", "possible", or "still to be ruled out" are acceptable. IF IN AGREEMENT, YOU MUST DOCUMENT ABOVE DIAGNOSTIC STATEMENT IN DAILY PROGRESS NOTES AND DISCHARGE SUMMARY. This document is not part of the patient's record. Thank You, Shefali Logan RN [phone]
[2016-11-17] MEDS: ACETAMINOPHEN 325 MG TAB PO PRN (10:35)
--- NOTE | 2016-11-17 12:52 | Discharge Instructions ---
Discharge Instructions Date of Service Nov 17, 2016. Admission Reason for Admission: Bradycardia With Less Than 30 Beats Per Minute Discharge Discharge Diagnosis / Problem: Intermittent complete heart block, Paroxysmal atrial firbillation, anemia Discharge Goals Goal(s): Increase independence, Improve disease control Activity Recommendations Activity Limitations: per Instructions/Follow-up section (as per cardiology discharge note) . Instructions / Follow-Up Instructions / Follow-Up You were diagnosed with intermittent complete heart block and paroxysmal atrial fibrillation. You were treated with implantation of a pacemaker (please see separate cardiology discharge instructions) for the heart block. As for you atrial fibrillation you will be followed up by cardiology for recommendations regarding this. Currently you are in sinus rhythm. Given you myelodysplasia disorder the risk of anticoagulation was felt to outweigh the benefit. Please follow up with cardiology as arranged. You also received 1 unit of blood prior to discharge. Please follow up with you tow mate (Dr Brewer) regarding further treatment for this (appointment to be arranged). Current Hospital Diet Patient's current hospital diet: AHA Diet (Heart Healthy), Diabetes Type 2 Diet Discharge Diet Recommended Diet: AHA Diet (Heart Healthy) Procedures Procedures Performed: Dual chamber pacemaker implantation on 11/16/2016 Pending Studies Studies pending at discharge: no Laboratory Results Hemoglobin A1c Test 11/15/16 19:45 Range/Units Estimated Average Glucose 111 mg/dl Hemoglobin A1c 5.5 4.5-5.6 % Medical Emergencies . Who to Call and When: Medical Emergencies: If at any time you feel your situation is an emergency, please call 911 immediately. . Non-Emergent Contact Non-Emergency issues call your: [employer] Apprentice Contact Number: [phone] . . "Provider Documentation" section prepared by Carson Bui. . VTE Core Measure Inpt VTE Proph given/why not?: SCD's
--- NOTE | 2016-11-17 22:15 | Discharge Summary ---
Discharge Summary Date of Service Nov 17, 2016. Discharge Summary Admission Date: Nov 15, 2016 at 21:25 Discharge Date: Nov 17, 2016 Discharge Disposition: Home Principal Diagnosis: Intermittent Complete Heart Block Problems/Secondary Diagnoses: Paroxysmal atrial fibrillation Immunizations: Have You Had Influenza Vaccine: Unknown History of Tetanus Vaccine?: Unknown History of Pneumococcal: Unknown History of Hepatitis B Vaccine: Unknown Medication Reconciliation Continued Medications: Cholecalciferol (Vitamin D3) 1,000 Inter.unit Tab 1000 INTER.UNIT PO DAILY Levothyroxine Sodium (Synthroid) 75 Mcg Tab 75 MCG PO DAILY, TAB Probiotic Product (Probiotic) 1 Cap Cap 1 CAP PO DAILY Discharge Exam Mrs Louis is a 76-year-old woman admitted for a syncopal event after nausea and vomiting post chemotherapy. She actually has a longstanding history of syncope associated after vomiting but never diagnosed with and cardiac arrythmia. While on the desk monitor in the ER she has an episode of complete heart block which spontaneous return to normal sinus rhythm which is likely who has a history of hypothyroidism and syncope associated with nausea and vomiting which is long-standing as well as a recently diagnosed myelodysplastic syndrome for which she recently started chemotherapy and chronic DIC for which she has low platelets and fibrinogen. She had nausea and vomiting associated with her chemotherapy and had multiple episodes of syncope yesterday, several documented with long pauses associated with complete heart block while she was nauseous and vomiting. This is consistent with her prior history. Interestingly one of her daughters has swallow syncope associated with heart block and her mother had some type of heart block which is unclear but may be similar, so there may be some sort of genetic component. Her one daughter is a infectious disease specialist and I talked to her on the phone to obtain some of this history as well as interviewing the patient in the room. As noted her lightheadedness and syncope is long-standing associate with nausea and vomiting, however in the past it has been sporadic and not intrusive. Now with the chemotherapy and requiring further treatments it will be difficult to avoid. Following the episodes in the ambulance and in the emergency room (which were documented) she has had no further lightheadedness or dizziness but also no further nausea or vomiting. She has no known heart disease and a recent echocardiogram was normal. Her chronic DIC is associated with a low fibrinogen and platelet count, that is also being followed by hematology. Hospital Course Total Time Spent: Less than 30 minutes This includes examination of the patient, discharge planning, medication reconciliation, and communication with other providers. Discharge Instructions Please refer to the electronic Patient Visit Report (Discharge Instructions) for additional information.
== END 2016-11-17 14:08 | disposition home or self-care (01) | DRG 242 ==
LOC: EDBD 19:37 → C.EDA 19:39 → C.2E 21:25 → ENRESERV 21:31
PROVIDERS: ADMIT Hospitalist; ATTEND Family Medicine
PROC: 3E0102A Introduction of Anti-Infective Envelope into Subcutaneous Tissue, Open Approach (ICD-10-PCS; principal; 2016-11-16 11:48)
PROC: 02HK3JZ Insertion of Pacemaker Lead into Right Ventricle, Percutaneous Approach (ICD-10-PCS; principal; 2016-11-16 11:48)
PROC: 02H63JZ Insertion of Pacemaker Lead into Right Atrium, Percutaneous Approach (ICD-10-PCS; principal; 2016-11-16 11:48)
PROC: 0JH606Z Insertion of Pacemaker, Dual Chamber into Chest Subcutaneous Tissue and Fascia, Open Approach (ICD-10-PCS; principal; 2016-11-16 11:48)
DX: I44.2 Atrioventricular block, complete (principal); D65 Disseminated intravascular coagulation [defibrination syndrome]; D46.9 Myelodysplastic syndrome, unspecified; I77.819 Aortic ectasia, unspecified site; I48.0 Paroxysmal atrial fibrillation; E03.9 Hypothyroidism, unspecified

== ENCOUNTER → 2016-12-09 | Outpatient (CLI) | payer BC | END | disposition home or self-care (01) | LOC: C.PAPS 09:46 | PROVIDERS: ATTEND Obstetrics & Gynecology | DX: Z01.419 Encounter for gynecological examination (general) (routine) without abnormal findings (principal) ==

== ENCOUNTER → 2016-12-10 | Outpatient (CLI) | payer BC ==
[2016-12-10 09:10] LABS: HEMATOCRIT 29.7 % (37-47); MEAN CELL VOLUME 103.8 fL (80-100); MEAN CORPUSCULAR HEMOGLOBIN 31.8 pg (25-34); MEAN CORPUSCULAR HGB CONC 30.6 g/dl (32-36); MEAN PLATELET VOLUME 10.3 fL (7.4-10.4); PLATELET COUNT 33 K/uL (130-400); RED BLOOD COUNT 2.86 M/uL (4.2-5.4); WHITE BLOOD COUNT 2.53 K/uL (4.8-10.8)
[2016-12-10 09:45] LABS: ANISOCYTOSIS PRESENT; BASO % 0.8 %; BASO ABS # 0.02 K/uL (0-0.2); COMPLETE YES; EOS % 0.8 %; IG% 3.6 %; LYMPH % 76.7 %; LYMPH ABS # 1.94 K/uL (1.2-3.4); MONO % 5.1 %
--- NOTE | 2016-12-24 07:56 | CODING QUERY NO DIAGNOSIS ---
TREATMENT RENDERED WITHOUT A DIAGNOSIS To promote full compliance with coding requirements relating to patient care, physician participation is requested in all cases of durable medical equipment repairer uncertainty. Please assist us with providing a diagnosis/symptom for the test(s) below: A diagnosis/symptom was not documented on your Order. A valid diagnosis/symptom is required to bill all insurances. Please remember that we are unable to code a diagnosis of rule out, probable, possible, questionable, or suspected. Tests that require a diagnosis: DOS 12/10 * CBC w/Diff DIAGNOSIS: Provider Signature: Date: Thank you Danette Faulkner Health Information Management Once completed, please kindly fax back to [phone] For questions please call [phone]
== END | disposition home or self-care (01) ==
LOC: C.LABFOXMH 08:36
PROVIDERS: ATTEND Internal Medicine Hematology & Oncology
DX: D46.9 Myelodysplastic syndrome, unspecified (principal)

== ENCOUNTER → 2017-01-08 | Outpatient (CLI) | payer BC ==
[2017-01-08 14:27] LABS: HEMATOCRIT 33.8 % (37-47); MEAN CELL VOLUME 106.6 fL (80-100); MEAN CORPUSCULAR HEMOGLOBIN 32.5 pg (25-34); MEAN CORPUSCULAR HGB CONC 30.5 g/dl (32-36); MEAN PLATELET VOLUME 10.2 fL (7.4-10.4); PLATELET COUNT 25 K/uL (130-400); RED BLOOD COUNT 3.17 M/uL (4.2-5.4); WHITE BLOOD COUNT 2.53 K/uL (4.8-10.8)
[2017-01-08 14:28] LABS: ANISOCYTOSIS PRESENT; BASO % 0.8 %; BASO ABS # 0.02 K/uL (0-0.2); COMPLETE YES; HYPERSEGMENTED POLYS 1+; LYMPH % 64.4 %; LYMPH ABS # 1.63 K/uL (1.2-3.4); MONO % 3.2 %; NEUT % 27.6 %; PLT ESTIMATE SIGNIFIC DECREASED; VACUOLIZATION 1+
== END | disposition home or self-care (01) ==
LOC: C.LAB 13:12
PROVIDERS: ATTEND Internal Medicine Hematology & Oncology
DX: D70.9 Neutropenia, unspecified (principal)

== ENCOUNTER → 2017-09-01 | Outpatient (CLI) | payer BC | END | disposition home or self-care (01) | LOC: C.LABFOXMH 14:42 | PROVIDERS: ATTEND Internal Medicine | DX: R35.0 Frequency of micturition (principal) ==

== ENCOUNTER → 2017-09-05 | Outpatient (CLI) | payer BC | END | disposition home or self-care (01) | LOC: C.CCL 12:12 | PROVIDERS: ATTEND Internal Medicine | DX: E03.9 Hypothyroidism, unspecified (principal); M81.0 Age-related osteoporosis without current pathological fracture ==